=== PATIENT | female | born 1950 | race African-American/Black ===

== ENCOUNTER 2019-03-26 08:58 | Inpatient (IN) | payer MEDICARE, MEDICAID ==
--- NOTE | 2019-03-26 09:56 | ER Document Report ---
ED General - General Chief Complaint: Facial Swelling Stated Complaint: MOUTH SWELLING TRAVEL OUTSIDE OF THE [place] IN LAST 30 DAYS: No - HPI Notes: Patient is a 69-year-old female with a history of type 2 diabetes, hypertension, hypercholesterolemia who presents to the emergency department for direct admission for Jair's Angina per Dr. Franks. Patient states that she has been having a sore throat, swelling of the tongue, and pain underneath her tongue over the past week. She is urinating normally and having normal bowel movements. Denies drug allergies. No other concerns or complaints at this time. Patient has arrived with orders from her admitting provider. Denies any headache, fever, neck pain, URI, chest pain, palpitations, syncope, cough, shortness of breath, wheeze, dyspnea, abdominal pain, nausea/vomiting/diarrhea, urinary retention, dysuria, hematuria, or rash. - Related Data Allergies/Adverse Reactions: No Known Allergies Allergy (Unverified 02/23/15 10:40) Past Medical History - Social History Smoking Status: Never Smoker Family History: Reviewed & Not Pertinent - Past Medical History Cardiac Medical History: Reports: Hx Hypertension - METOPROLOL, LISINOPRIL, NORVASC Denies: Hx Coronary Artery Disease, Hx Heart Attack Pulmonary Medical History: Denies: Hx Asthma, Hx Bronchitis, Hx COPD, Hx Pneumonia Neurological Medical History: Denies: Hx Cerebrovascular Accident, Hx Seizures GI Medical History: Denies: Hx Hepatitis, Hx Hiatal Hernia, Hx Ulcer Musculoskeletal Medical History: Denies Hx Arthritis Infectious Medical History: Denies: Hx Hepatitis Past Surgical History: Denies: Hx Hysterectomy, Hx Mastectomy, Hx Open Heart Surgery, Hx Pacemaker - Immunizations Hx Diphtheria, Pertussis, Tetanus Vaccination: No Review of Systems - Review of Systems -: Yes All other systems reviewed and negative Physical Exam - Vital signs Vitals: Temp Pulse Resp BP Pulse Ox 98.8 F 102 H 18 183/83 H 95 03/26/19 09:14 03/26/19 09:14 03/26/19 09:14 03/26/19 09:14 03/26/19 09:14 - Notes Notes: PHYSICAL EXAMINATION: GENERAL: Well-appearing, well-nourished and in no acute distress. A&Ox4. Answers questions appropriately. Moves comfortably w/o notable distress HEAD: Atraumatic, normocephalic. EYES: Pupils equal round and reactive to light, extraocular movements intact, sclera anicteric, conjunctiva are normal. ENT: EAC clear b/l. TM's intact b/l without erythema, fluid, or perforation. Nares patent and with clear discharge. oropharynx mild erythema without exudates. 3+ tonsilar hypertrophy with erythema no exudate. No obvious palatine shift. Uvula midline. + tenderness to the subungual area. No drooling, hoarseness, or airway compromise. Moist mucous membranes. No sinus tenderness. NECK: Normal range of motion, supple without lymphadenopathy. No rigidity/meningismus. LUNGS: Breath sounds clear to auscultation bilaterally and equal. No wheezes rales or rhonchi. No retractions HEART: Regular rate and rhythm without murmurs, rubs, gallops. NEUROLOGICAL: Normal speech, normal gait. PSYCH: Normal mood, normal affect. SKIN: Warm, Dry, normal turgor, no rashes or lesions noted. Course - Re-evaluation Re-evalutation: 03/26/19 09:54 Pt is a direct admit per Dr. Franks. His admission orders are already placed. Vitals acceptable without significant tachycardia, tachypnea, or hypoxia. PE is otherwise unremarkable aside from what was noted. She is nontoxic-appearing. No further work-up warranted. Admission per Dr. Franks. - Vital Signs Vital signs: Temp Pulse Resp BP Pulse Ox 98.8 F 102 H 18 183/83 H 95 03/26/19 09:14 03/26/19 09:14 03/26/19 09:14 03/26/19 09:14 03/26/19 09:14 Discharge - Discharge Clinical Impression: Ludwigs angina Condition: Stable Disposition: ADMITTED INPATIENT Admitting Provider: [facility] Admitted: [facility]
[2019-03-26 10:15] LABS: ABSOLUTE EOSINOPHILS # (AUTO) 0.1 10^3/uL (0.0-0.6); ABSOLUTE LYMPHOCYTES (AUTO) 3.8 10^3/uL (0.5-4.7); ABSOLUTE NEUT (AUTO) 9.3 10^3/uL (1.7-8.2); BASOPHILS % (AUTO) 0.3 % (0-2); EOSINOPHILS % (AUTO) 0.8 % (0-6); HEMATOCRIT 38.1 % (36.0-47.0); HEMOGLOBIN 12.8 g/dL (12.0-15.5); LYMPHOCYTES % (AUTO) 26.7 % (13-45); MEAN CORPUSCULAR HGB CONC 33.7 g/dL (32.0-36.0); MEAN CORPUSCULAR VOLUME 95 fl (80-97); MONOCYTES % (AUTO) 7.1 % (3-13); PLATELET COUNT 307 10^3/uL (150-450); RED BLOOD COUNT 4.01 10^6/uL (3.72-5.28); RED CELL DISTRIBUTION WIDTH 14.1 % (11.5-14.0); SEGMENTED NEUTROPHILS % (AUTO) 65.1 % (42-78); TOTAL CELLS COUNTED % (AUTO) 100 %; WHITE BLOOD COUNT 14.3 10^3/uL (4.0-10.5)
[2019-03-26] MEDS ORDERED: DEXTROSE 50%-WATER SYRINGE 12.5 GM/25 ML DOSE IV PRN (10:30)
[2019-03-26] MEDS ORDERED: GLUCAGON,HUMAN RECOMB 1 MG INJ IM PRN (10:30)
[2019-03-26] MEDS ORDERED: DEXTROSE 50%-WATER SYRINGE 25 GM/50 ML DOSE IV PRN (10:30)
[2019-03-26] MEDS ORDERED: DEXTROSE 40% GEL 15 GM TUBE X 2 PO PRN (10:30)
[2019-03-26] MEDS ORDERED: DEXTROSE 40% GEL 15 GM TUBE PO PRN (10:30)
[2019-03-26 10:32] LABS: ALANINE AMINOTRANSFERASE 23 U/L (9-52); ALBUMIN 4.6 g/dL (3.5-5.0); ALKALINE PHOSPHATASE 104 U/L (38-126); ANION GAP 16 (5-19); ASPARTATE AMINO TRANSFERASE 28 U/L (14-36); BILIRUBIN,DIRECT 0.4 mg/dL (0.0-0.4); BILIRUBIN,TOTAL 0.7 mg/dL (0.2-1.3); BLOOD UREA NITROGEN 7 mg/dL (7-20); CALCIUM 10.3 mg/dL (8.4-10.2); CARBON DIOXIDE 18 mmol/L (22-30); CHLORIDE 110 mmol/L (98-107); GLUCOSE 143 mg/dL (75-110); POTASSIUM 3.9 mmol/L (3.6-5.0); SODIUM 144.2 mmol/L (137-145); TOTAL PROTEIN 8.6 g/dL (6.3-8.2)
[2019-03-26] MEDS ORDERED: LEVOFLOXACIN 500 MG/D5W RTU 500 MG/100 ML RTUPB IV SCH (11:00)
[2019-03-26] MEDS: LEVOFLOXACIN 500 MG/D5W RTU 500 MG/100 ML RTUPB IV SCH (11:36)
[2019-03-26] MEDS: PANTOPRAZOLE SODIUM 40 MG VIAL IV SCH ×2 (11:36→22:43)
[2019-03-26] MEDS: INSULIN LISPRO 100 UNIT/ML 3 ML VIAL SUBCUT SCH ×3 (12:03→22:43)
--- NOTE | 2019-03-26 12:38 | RADIOLOGY REPORT (SQ) ---
EXAM DESCRIPTION: CT SOFT TISSUE NECK WITH COMPLETED DATE/TIME: 03/26/2019 12:02 pm REASON FOR STUDY: er 2 neck pain/swelling COMPARISON: None. TECHNIQUE: Post IV contrasted scanning from skull base through lung apices with review of bone, soft tissue and lung windows. Reconstructed coronal and sagittal MPR images reviewed. All images stored on PACS. All CT scanners at this facility use dose modulation, iterative reconstruction, and/or weight based d osing when appropriate to reduce radiation dose to as low as reasonably achievable (ALARA). [facility]: Dose Right [facility]: CareDose [facility]: Dose Right [facility]: Teradose 4D [facility]: Shopsy CONTRAST TYPE AND DOSE: contrast/concentration: Isovue 350.00 mg/ml; Total Contrast Delivered: 75.0 ml; Total Saline Delivered: 55.0 ml RENAL FUNCTION: GFR > 60. RADIATION DOSE: CT Rad equipment meets quality standard of care and radiation dose reduction techniq ues were employed. CTDIvol: 17.7 mGy. DLP: 568 mGy-cm. . LIMITATIONS: None. FINDINGS: SKULL BASE: Intact. MAJOR SALIVARY GLANDS: No solid or cystic masses. No inflammatory changes. LYMPHADENOPATHY: Mildly enlarged lymph nodes symmetric both sides of the neck above the hyoid. No bu lky adenopathy. MUCOSAL MASSES OR ASYMMETRY: Right tonsillar pillar heterogeneous low-attenuation lesion measuring ab out 2.5 cm in maximum diameter craniocaudal. LARYNX/CORDS: No abnormal findings. VASCULAR STRUCTURES: The major vessels are patent. LUNG APICES: Clear. BONES: Intact. THYROID: Enlarged. Several subcentimeter nodules. PARANASAL SINUSES: Fluid left sphenoid sinus. OTHER: No other significant finding. IMPRESSION: Necrotic lesion right tonsillar pillar most likely abscess. ENT consultation is recomme nded. TECHNICAL DOCUMENTATION: JOB ID: [id number] Quality ID # [id number]: Final reports with documentation of one or more dose reduction techniques (e.g., Au tomated exposure control, adjustment of the mA and/or kV according to patient size, use of iterative reconstruction technique) 2010 [employer]- All Rights Reserved Reading location - IP/workstation name: [email or web address]
[2019-03-26] MEDS: NORMAL SALINE 1000 ML 1,000 ML IV PRN (13:55)
[2019-03-26] MEDS: CLINDAMYCIN 600 MG/D5W RTU 600 MG/50 ML RTUPB IV SCH ×2 (13:56→22:43)
[2019-03-26] MEDS ORDERED: CLINDAMYCIN 600 MG/D5W RTU 600 MG/50 ML RTUPB IV SCH (14:00)
[2019-03-26] MEDS: METFORMIN HCL 500 MG TABLET PO SCH (17:54)
--- NOTE | 2019-03-26 19:09 | PDOC H&P ---
History of Present Illness Admission Date/PCP: 03/26/19 09:34 RUPESH KOBE Patient complains of: Difficulty with swallowing History of Present Illness: CHARLOTTE SOMERS is a 69 year old female know to my practice who presented to the office earlier today due to difficulty with swallowing. she was seen in the office yesterday for possible tonsillitis with consideration of upper respiratory tract infection and started on oral Augmentin. She was able to procure and administer only one dose thereafter. Patient and daughter reported significant swelling in her throat and lower aspect of her jaw with associated difficulty with swallowing and inability to administer any of her medication, drink, or food. she denied overt fever but reported continue chills and breaking out in sweats. No nausea vomiting or abdominal pain. No chest pain or difficulty with breathing. Her morbidities include diabetes mellitus, hypertension, hyperlipidemia, GERD, and mixed anxiety with depression. She was admitted directly from the office but due to lack of bed availability at the time she was routed through the ED. Past Medical History Cardiac Medical History: Reports: Hyperlipidema, Hypertension - METOPROLOL, LISINOPRIL, NORVASC Denies: Coronary Artery Disease, Myocardial Infarction Pulmonary Medical History: Denies: Asthma, Bronchitis, Chronic Obstructive Pulmonary Disease (COPD), Pneumonia Neurological Medical History: Denies: Seizures Endocrine Medical History: Reports: Diabetes Mellitus Type 2 GI Medical History: Denies: Hepatitis, Hiatal Hernia Musculoskeltal Medical History: Denies: Arthritis Psychiatric Medical History: Reports: General Anxiety Disorder Hematology: Denies: Anemia, Sickle Cell Disease Past Surgical History Past Surgical History: Denies: Amputation, Hysterectomy, Mastectomy, Pacemaker Social History Smoking Status: Never Smoker Family History Family History: Reviewed & Not Pertinent Parental Family History Reviewed: Yes Children Family History Reviewed: Yes Sibling(s) Family History Reviewed.: Yes Medication/Allergy Home Medications: Amlodipine Besylate [Norvasc 10 mg Tablet] 10 mg PO DAILY 03/26/13 Aspirin [Ecotrin 81 mg EC Tablet] 81 mg PO DAILY 03/26/13 Glimepiride [Amaryl] 2 mg PO DAILY 03/26/13 Lisinopril 40 mg PO DAILY 03/26/13 Metformin HCl [Glucophage 500 Mg Tablet] 500 mg PO BID 03/26/13 Omeprazole 20 mg PO DAILY 03/26/13 Sertraline HCl [Zoloft] 100 mg PO DAILY 03/26/13 Ergocalciferol (Vitamin D2) [Drisdol 50,000 Unit (1.25MG) Capsule] 50,000 unit PO MO@1000 03/26/19 Metoprolol Tartrate [Lopressor 25 mg Tablet] 25 mg PO Q12 03/26/19 Rosuvastatin Calcium [Crestor 20 mg Tablet] 20 mg PO QHS 03/26/19 Allergies/Adverse Reactions: No Known Allergies Allergy (Unverified 02/23/15 10:40) Review of Systems Constitutional: PRESENT: chills Eyes: PRESENT: visual disturbances Ears: ABSENT: hearing changes Nose, Mouth, and Throat: PRESENT: sore throat. ABSENT: as per HPI, headache(s), mouth pain, vertigo, other Cardiovascular: ABSENT: chest pain, dyspnea on exertion, edema, orthropnea, palpitations Respiratory: ABSENT: cough, hemoptysis Gastrointestinal: PRESENT: dysphagia. ABSENT: as per HPI, abdominal pain, bloating, coffee ground emesis, constipation, diarrhea, heartburn, hematemesis, hematochezia, melena, nausea, vomiting, other Musculoskeletal: ABSENT: joint swelling Integumentary: ABSENT: rash, wounds Neurological: ABSENT: abnormal gait, abnormal speech, confusion, dizziness, focal weakness, syncope Psychiatric: PRESENT: anxiety Endocrine: ABSENT: cold intolerance, heat intolerance, polydipsia, polyuria Hematologic/Lymphatic: ABSENT: easy bleeding, easy bruising, lymphadenopathy Allergic/Immunologic: ABSENT: seasonal rhinorrhea Physical Exam Vital Signs: Temp Pulse Resp BP Pulse Ox 99.2 F 84 20 149/89 H 95 03/26/19 15:53 03/26/19 15:53 03/26/19 15:53 03/26/19 15:53 03/26/19 15:53 Intake & Output 03/25/19 03/26/19 03/27/19 06:59 06:59 06:59 Intake Total 150 Balance 150 Weight 114.3 kg General appearance: PRESENT: mild distress - due yo pain and difficulty with swallowing, morbidly obese Head exam: PRESENT: atraumatic, normocephalic Eye exam: PRESENT: conjunctival injection - left eye, conjunctiva pink, EOMI, PERRLA. ABSENT: scleral icterus Ear exam: PRESENT: normal external ear exam Mouth exam: PRESENT: moist Teeth exam: PRESENT: poor dentation Throat exam: PRESENT: tonsillar erythema, tonsillogmegaly Neck exam: PRESENT: full ROM. ABSENT: carotid bruit, JVD, lymphadenopathy, thyromegaly Respiratory exam: PRESENT: clear to auscultation nikolas Cardiovascular exam: PRESENT: RRR. ABSENT: diastolic murmur, rubs, systolic murmur Vascular exam: PRESENT: normal capillary refill. ABSENT: pallor GI/Abdominal exam: PRESENT: normal bowel sounds, soft. ABSENT: distended, guarding, mass, organolmegaly, rebound, tenderness Rectal exam: PRESENT: deferred Extremities exam: ABSENT: pedal edema Musculoskeletal exam: PRESENT: normal inspection Neurological exam: PRESENT: alert, awake, oriented to person, oriented to place, oriented to time, oriented to situation, CN II-XII grossly intact. ABSENT: motor sensory deficit Psychiatric exam: PRESENT: anxious. ABSENT: homicidal ideation, suicidal ideation Skin exam: PRESENT: dry, warm Results Laboratory Results: 03/26/19 10:00 03/26/19 10:00 03/26/19 03/26/19 10:00 10:00 WBC 14.3 H RBC 4.01 Hgb 12.8 Hct 38.1 MCV 95 MCH 32.0 MCHC 33.7 RDW 14.1 H Plt Count 307 Seg Neutrophils % 65.1 Lymphocytes % 26.7 Monocytes % 7.1 Eosinophils % 0.8 Basophils % 0.3 Absolute Neutrophils 9.3 H Absolute Lymphocytes 3.8 Absolute Monocytes 1.0 Absolute Eosinophils 0.1 Absolute Basophils 0.0 Sodium 144.2 Potassium 3.9 Chloride 110 H Carbon Dioxide 18 L Anion Gap 16 BUN 7 Creatinine 0.46 L Est GFR ( Amer) > 60 Est GFR (Non-Af Amer) > 60 Glucose 143 H Calcium 10.3 H Total Bilirubin 0.7 AST 28 ALT 23 Alkaline Phosphatase 104 Total Protein 8.6 H Albumin 4.6 Impressions: Soft Tissue Neck CT 03/26/19 00:00 IMPRESSION: Necrotic lesion right tonsillar pillar most likely abscess. ENT consultation is recommended. Assessment & Plan - Diagnosis (1) Ludwigs angina Is this a current diagnosis for this admission?: Yes Plan: See admitting attending physician orders for details of care plan. (2) Diabetes mellitus type 2 in obese Is this a current diagnosis for this admission?: Yes Plan: See admitting attending physician orders for details of care plan. (3) HTN (hypertension) Qualifiers: Hypertension type: essential hypertension Qualified Code(s): I10 - Essential (primary) hypertension Is this a current diagnosis for this admission?: Yes Plan: See admitting attending physician orders for details of care plan. (4) HLD (hyperlipidemia) Qualifiers: Hyperlipidemia type: unspecified Qualified Code(s): E78.5 - Hyperlipidemia, unspecified Is this a current diagnosis for this admission?: Yes Plan: See admitting attending physician orders for details of care plan. (5) Mixed anxiety and depressive disorder Is this a current diagnosis for this admission?: Yes Plan: See admitting attending physician orders for details of care plan. (6) Vitamin D deficiency Is this a current diagnosis for this admission?: Yes Plan: See admitting attending physician orders for details of care plan. - Time Time Spent: 50 to 70 Minutes Medications reviewed and adjusted accordingly: Yes Anticipated discharge: Home with Homehealth Within: Other - Inpatient Certification Based on my medical assessment, after consideration of the patient's comorbidities, presenting symptoms, or acuity I expect that the services needed warrant INPATIENT care.: Yes I certify that my determination is in accordance with my understanding of Medicare's requirements for reasonable and necessary INPATIENT services [42 CFR 412.3e].: Yes Medical Necessity: Significant Comorbidiites Make Outpatient Treatment Too Ri michelle, Need Close Monitoring Due to Risk of Patient Decompensation, Need For IV Fluids, Need For Continuous Telemetry Monitoring, Need for IV Antibiotics, Risk of Complication if Not Cared For in Hospital, Risk of Diagnosis Which Will Require Inpatient Eval/Care/Monitoring Post Hospital Care: D/C Personal Care Service Provider Documentation - Plan Summary Plan Summary: See admitting attending physician orders for details of care plan.
[2019-03-26] MEDS ORDERED: (PENDING PHARMACY ID) (Rosuvastatin Calcium [Crestor 20 Mg Tablet] 20 MG) PO SCH (22:00)
[2019-03-26] MEDS ORDERED: METOPROLOL TARTRATE 25 MG TABLET PO SCH (22:00)
[2019-03-26] MEDS ORDERED: ATORVASTATIN CALCIUM 40 MG TABLET PO SCH ×2 (22:00)
[2019-03-26] MEDS: METOPROLOL TARTRATE 25 MG TABLET PO SCH (22:43)
[2019-03-26] MEDS: ATORVASTATIN CALCIUM 40 MG TABLET PO SCH (22:43)
[2019-03-27] MEDS: NORMAL SALINE 1000 ML 1,000 ML IV PRN ×2 (02:39→21:23)
[2019-03-27] MEDS: CLINDAMYCIN 600 MG/D5W RTU 600 MG/50 ML RTUPB IV SCH ×3 (05:11→21:22)
[2019-03-27 05:32] LABS: ABSOLUTE EOSINOPHILS # (AUTO) 0.2 10^3/uL (0.0-0.6); ABSOLUTE LYMPHOCYTES (AUTO) 3.4 10^3/uL (0.5-4.7); ABSOLUTE MONOCYTES (AUTO) 1.2 10^3/uL (0.1-1.4); ABSOLUTE NEUT (AUTO) 7.8 10^3/uL (1.7-8.2); BASOPHILS % (AUTO) 0.2 % (0-2); EOSINOPHILS % (AUTO) 1.7 % (0-6); HEMATOCRIT 32.8 % (36.0-47.0); LYMPHOCYTES % (AUTO) 26.8 % (13-45); MEAN CORPUSCULAR HEMOGLOBIN 31.8 pg (27.0-33.4); MEAN CORPUSCULAR HGB CONC 33.6 g/dL (32.0-36.0); MEAN CORPUSCULAR VOLUME 95 fl (80-97); MONOCYTES % (AUTO) 9.4 % (3-13); PLATELET COUNT 259 10^3/uL (150-450); RED BLOOD COUNT 3.46 10^6/uL (3.72-5.28); RED CELL DISTRIBUTION WIDTH 13.8 % (11.5-14.0); SEGMENTED NEUTROPHILS % (AUTO) 61.9 % (42-78); TOTAL CELLS COUNTED % (AUTO) 100 %; WHITE BLOOD COUNT 12.7 10^3/uL (4.0-10.5)
[2019-03-27 05:49] LABS: ALANINE AMINOTRANSFERASE 19 U/L (9-52); ALBUMIN 3.8 g/dL (3.5-5.0); ALKALINE PHOSPHATASE 80 U/L (38-126); ANION GAP 13 (5-19); ASPARTATE AMINO TRANSFERASE 24 U/L (14-36); BILIRUBIN,DIRECT 0.3 mg/dL (0.0-0.4); BILIRUBIN,TOTAL 0.7 mg/dL (0.2-1.3); BLOOD UREA NITROGEN 4 mg/dL (7-20); CALCIUM 9.3 mg/dL (8.4-10.2); CARBON DIOXIDE 20 mmol/L (22-30); CHLORIDE 110 mmol/L (98-107); GLUCOSE 110 mg/dL (75-110); POTASSIUM 3.8 mmol/L (3.6-5.0); SODIUM 142.6 mmol/L (137-145); TOTAL PROTEIN 7.2 g/dL (6.3-8.2); TRIGLYCERIDES 176 mg/dL (<150)
[2019-03-27 06:00] LABS: DIRECT LDL 108 mg/dL (<100)
[2019-03-27] MEDS ORDERED: PANTOPRAZOLE SODIUM 20 MG TABLET.DR PO SCH (06:00)
[2019-03-27 06:04] LABS: VLDL CHOLESTEROL 35.2 mg/dL (10-31)
--- NOTE | 2019-03-27 07:44 | PDOC PROGRESS REPORT ---
Subjective Progress Note for:: 03/27/19 Subjective:: Patient reported some improvement in her swallowing tolerance with decrease pain. No fever or chills. No nausea, vomiting, increase salivation or abdominal pain. No chest pain or difficulty with breathing. Reason For Visit: DIABETES MELLITUS TYPE 2, HTN, HLD, GERD, ANXIETY Physical Exam Vital Signs: Temp Pulse Resp BP Pulse Ox 98 F 68 18 150/62 H 98 03/27/19 04:00 03/27/19 04:00 03/27/19 04:00 03/27/19 04:00 03/27/19 04:00 Intake & Output 03/26/19 03/27/19 03/28/19 06:59 06:59 06:59 Intake Total 1200 Balance 1200 Weight 115.5 kg General appearance: PRESENT: no acute distress, morbidly obese Head exam: PRESENT: atraumatic, normocephalic Eye exam: PRESENT: conjunctival injection - left eye, EOMI, PERRLA. ABSENT: scleral icterus Ear exam: PRESENT: normal external ear exam Mouth exam: PRESENT: moist Throat exam: PRESENT: post pharyngeal erythema - improving, tonsillar erythema - improving, tonsillogmegaly - improving Respiratory exam: PRESENT: clear to auscultation nikolas Cardiovascular exam: PRESENT: RRR. ABSENT: diastolic murmur, rubs, systolic murmur Vascular exam: ABSENT: pallor GI/Abdominal exam: PRESENT: normal bowel sounds, soft. ABSENT: distended, guarding, mass, organolmegaly, rebound, tenderness Extremities exam: ABSENT: pedal edema Neurological exam: PRESENT: alert, awake, oriented to person, oriented to place, oriented to time, oriented to situation, CN II-XII grossly intact. ABSENT: motor sensory deficit Psychiatric exam: PRESENT: appropriate affect, normal mood. ABSENT: homicidal ideation, suicidal ideation Skin exam: PRESENT: dry, warm Results Laboratory Results: 03/27/19 04:53 03/27/19 04:53 03/26/19 03/26/19 03/27/19 10:00 10:00 04:53 WBC 14.3 H 12.7 H RBC 4.01 3.46 L Hgb 12.8 11.0 L Hct 38.1 32.8 L MCV 95 95 MCH 32.0 31.8 MCHC 33.7 33.6 RDW 14.1 H 13.8 Plt Count 307 259 Seg Neutrophils % 65.1 61.9 Lymphocytes % 26.7 26.8 Monocytes % 7.1 9.4 Eosinophils % 0.8 1.7 Basophils % 0.3 0.2 Absolute Neutrophils 9.3 H 7.8 Absolute Lymphocytes 3.8 3.4 Absolute Monocytes 1.0 1.2 Absolute Eosinophils 0.1 0.2 Absolute Basophils 0.0 0.0 Sodium 144.2 Potassium 3.9 Chloride 110 H Carbon Dioxide 18 L Anion Gap 16 BUN 7 Creatinine 0.46 L Est GFR ( Amer) > 60 Est GFR (Non-Af Amer) > 60 Glucose 143 H Calcium 10.3 H Total Bilirubin 0.7 AST 28 ALT 23 Alkaline Phosphatase 104 Total Protein 8.6 H Albumin 4.6 Triglycerides Cholesterol LDL Cholesterol Direct VLDL Cholesterol HDL Cholesterol 03/27/19 04:53 WBC RBC Hgb Hct MCV MCH MCHC RDW Plt Count Seg Neutrophils % Lymphocytes % Monocytes % Eosinophils % Basophils % Absolute Neutrophils Absolute Lymphocytes Absolute Monocytes Absolute Eosinophils Absolute Basophils Sodium 142.6 Potassium 3.8 Chloride 110 H Carbon Dioxide 20 L Anion Gap 13 BUN 4 L Creatinine 0.42 L Est GFR ( Amer) > 60 Est GFR (Non-Af Amer) > 60 Glucose 110 Calcium 9.3 Total Bilirubin 0.7 AST 24 ALT 19 Alkaline Phosphatase 80 Total Protein 7.2 Albumin 3.8 Triglycerides 176 H Cholesterol 170.40 LDL Cholesterol Direct 108 H VLDL Cholesterol 35.2 H HDL Cholesterol 33 L Impressions: Soft Tissue Neck CT 03/26/19 00:00 IMPRESSION: Necrotic lesion right tonsillar pillar most likely abscess. ENT consultation is recommended. Assessment & Plan - Diagnosis (1) Ludwigs angina Is this a current diagnosis for this admission?: Yes (2) Diabetes mellitus type 2 in obese Is this a current diagnosis for this admission?: Yes (3) HTN (hypertension) Qualifiers: Hypertension type: essential hypertension Qualified Code(s): I10 - Essential (primary) hypertension Is this a current diagnosis for this admission?: Yes (4) HLD (hyperlipidemia) Qualifiers: Hyperlipidemia type: unspecified Qualified Code(s): E78.5 - Hyperlipidemia, unspecified Is this a current diagnosis for this admission?: Yes (5) Mixed anxiety and depressive disorder Is this a current diagnosis for this admission?: Yes (6) Vitamin D deficiency Is this a current diagnosis for this admission?: Yes - Time Time Spent with patient: 25-34 minutes Medications reviewed and adjusted accordingly: Yes Anticipated discharge: Home Within: Other - Inpatient Certification Based on my medical assessment, after consideration of the patient's comorbidities, presenting symptoms, or acuity I expect that the services needed warrant INPATIENT care.: Yes I certify that my determination is in accordance with my understanding of Medicare's requirements for reasonable and necessary INPATIENT services [42 CFR 412.3e].: Yes Medical Necessity: Significant Comorbidiites Make Outpatient Treatment Too Risky, Need Close Monitoring Due to Risk of Patient Decompensation, Need For IV Fluids, Need For Continuous Telemetry Monitoring, Need for IV Antibiotics, Risk of Complication if Not Cared For in Hospital, Risk of Diagnosis Which Will Require Inpatient Eval/Care/Monitoring Post Hospital Care: D/C [employer] Documentation - Plan Summary Plan Summary: Continue IV antibiotic therapy. Follow up on ENT consultation and blood culture findings. Maintain on all other current medication management.
[2019-03-27] MEDS ORDERED: AMLODIPINE BESYLATE 10 MG TABLET PO SCH (10:00)
[2019-03-27] MEDS ORDERED: (PENDING PHARMACY ID) (Lisinopril [Lisinopril] 40 MG) PO SCH (10:00)
[2019-03-27] MEDS ORDERED: LISINOPRIL 10 MG TABLET PO SCH (10:00)
[2019-03-27] MEDS: INSULIN LISPRO 100 UNIT/ML 3 ML VIAL SUBCUT SCH ×4 (10:22→21:10)
[2019-03-27] MEDS: PANTOPRAZOLE SODIUM 40 MG VIAL IV SCH ×2 (10:32→21:23)
[2019-03-27] MEDS: LISINOPRIL 10 MG TABLET PO SCH (10:33)
[2019-03-27] MEDS: SERTRALINE HCL 50 MG TABLET PO SCH (10:33)
[2019-03-27] MEDS: METFORMIN HCL 500 MG TABLET PO SCH ×2 (10:33→17:00)
[2019-03-27] MEDS: ASPIRIN 81 MG TABLET, ENT COATED PO SCH (10:33)
[2019-03-27] MEDS: ENOXAPARIN SODIUM INJ 40 MG/0.4 ML DISP.SYRIN SUBCUT SCH (10:34)
[2019-03-27] MEDS: LEVOFLOXACIN 500 MG/D5W RTU 500 MG/100 ML RTUPB IV SCH (10:34)
[2019-03-27] MEDS: AMLODIPINE BESYLATE 10 MG TABLET PO SCH (10:34)
[2019-03-27] MEDS: METOPROLOL TARTRATE 25 MG TABLET PO SCH ×2 (10:34→21:24)
[2019-03-27] MEDS: GLIMEPIRIDE 1 MG TABLET PO SCH (10:38)
--- NOTE | 2019-03-27 10:39 | CONSULTATION REPORT E ---
Consultation Report NAME: CHARLOTTE SOMERS : 1950 AGE: 69Y DATE: 03/27/2019 314 A TO: LINDA HALL MD FROM: RUPESH BULLOCK M.D. Requesting Physician HISTORY: The otolaryngology service was asked to evaluate this 69-year-old female who was admitted to the hospital on 03/26/2019. The patient was admitted to the hospital because of facial swelling, tongue swelling, and dysphagia. The patient states that at the time of admission her tongue was swollen. She was not tolerating p.o. and she had difficulty opening up her mouth. The patient was admitted and started on IV antibiotics, which were Cleocin and Levaquin. Today the patient states that she is doing much better. She states that the neck and tongue swelling has decreased in size. She states she is tolerating p.o. without difficulty and she is able to open up her mouth without any pain or difficulty. A CT scan of the neck was obtained and it revealed a phlegmon/questionable abscess in the right peritonsillar area. PHYSICAL EXAMINATION: ORAL CAVITY/OROPHARYNX: There is some fullness, erythema in the right peritonsillar area. The uvula is midline. No trismus. Tongue is normal in size. Full range of motion of the tongue. The floor of mouth is normal. NECK: There is tender adenopathy level 2 on the right side. ASSESSMENT: Right peritonsillar cellulitis, possible abscess. PLAN: 1. The diagnosis and treatment plan were discussed with the patient and the nursing staff that was in the room. 2. Since the patient is doing much better, she states the trismus has resolved, she is tolerating p.o. and overall feels much better than yesterday recommend continued IV antibiotics. Would add IV steroids in the form of Decadron 10 mg as loading dose and then 8 mg IV piggyback for 3 doses. 3. Will reevaluate tomorrow to determine need for a needle aspiration of the right peritonsillar area. DICTATING PHYSICIAN: LINDA HALL M.D. [id number] PHY#: [id number] ID: [id number] JOB#: [id number] ACCT: [id number] cc:LINDA HALL MD >
[2019-03-27] MEDS: ATORVASTATIN CALCIUM 40 MG TABLET PO SCH (21:24)
[2019-03-28] MEDS: CLINDAMYCIN 600 MG/D5W RTU 600 MG/50 ML RTUPB IV SCH ×2 (06:17→14:30)
[2019-03-28] MEDS: INSULIN LISPRO 100 UNIT/ML 3 ML VIAL SUBCUT SCH ×2 (09:26→14:22)
[2019-03-28] MEDS: LISINOPRIL 10 MG TABLET PO SCH (10:26)
[2019-03-28] MEDS: ASPIRIN 81 MG TABLET, ENT COATED PO SCH (10:26)
[2019-03-28] MEDS: METOPROLOL TARTRATE 25 MG TABLET PO SCH (10:26)
[2019-03-28] MEDS: SERTRALINE HCL 50 MG TABLET PO SCH (10:26)
[2019-03-28] MEDS: AMLODIPINE BESYLATE 10 MG TABLET PO SCH (10:27)
[2019-03-28] MEDS: ENOXAPARIN SODIUM INJ 40 MG/0.4 ML DISP.SYRIN SUBCUT SCH (10:27)
[2019-03-28] MEDS: METFORMIN HCL 500 MG TABLET PO SCH (10:27)
[2019-03-28] MEDS: PANTOPRAZOLE SODIUM 40 MG VIAL IV SCH (10:27)
[2019-03-28] MEDS: LEVOFLOXACIN 500 MG/D5W RTU 500 MG/100 ML RTUPB IV SCH (10:35)
[2019-03-28] MEDS: GLIMEPIRIDE 1 MG TABLET PO SCH (10:37)
--- NOTE | 2019-03-28 13:33 | PROGRESS NOTE E ---
Progress Note NAME: CHARLOTTE SOMERS : 1950 AGE: 69Y DATE: 03/28/2019 ROOM: 314 SUBJECTIVE: The patient is doing much better today. She is tolerating p.o. without any complaints. She is drinking and eating without any problems. She states she can open up her mouth fully. Overall, she states she is doing much better. OBJECTIVE: ORAL CAVITY/OROPHARYNGEAL EXAM: The fullness in the right peritonsillar area has resolved. No evidence of erythema or edema. The tonsils are without erythema or edema. Overall, much, much improved. ASSESSMENT: RIGHT PERITONSILLAR CELLULITIS, RESOLVED. PLAN: 1. Surgical intervention is not indicated at this time. 2. Recommend discharging the patient on p.o. antibiotics. 3. Follow up with ENT as needed. DICTATING PHYSICIAN: LINDA HALL M.D. [id number] PHY#: [id number] ID: [id number] JOB#: [id number] ACCT: [id number] cc: > MTDD
--- NOTE | 2019-03-28 15:36 | PDOC DISCHARGE SUMMARY ---
General - Admit/Disc Date/PCP Admission Date/Primary Care Provider: 03/26/19 09:34 RUPESH KOBE Discharge Date: 03/28/19 - Discharge Diagnosis (1) Peritonsillar abscess Is this a current diagnosis for this admission?: Yes Summary: Augmentin 875/125 mg p.o x 10days. follow up in the office as instructed upon discharge. (2) Diabetes mellitus type 2 in obese Is this a current diagnosis for this admission?: Yes (3) HTN (hypertension) Is this a current diagnosis for this admission?: Yes (4) HLD (hyperlipidemia) Is this a current diagnosis for this admission?: Yes (5) Mixed anxiety and depressive disorder Is this a current diagnosis for this admission?: Yes (6) Vitamin D deficiency Is this a current diagnosis for this admission?: Yes - Additional Information Prescriptions: Amox Tr/Potassium Clavulanate [Augmentin 875-125 mg Tablet] 1 tab PO BID #20 tablet Home Medications: Amlodipine Besylate [Norvasc 10 mg Tablet] 10 mg PO DAILY 03/26/13 Aspirin [Ecotrin 81 mg EC Tablet] 81 mg PO DAILY 03/26/13 Glimepiride [Amaryl] 2 mg PO DAILY 03/26/13 Lisinopril 40 mg PO DAILY 03/26/13 Metformin HCl [Glucophage 500 mg Tablet] 500 mg PO BID 03/26/13 Omeprazole 20 mg PO DAILY 03/26/13 Sertraline HCl [Zoloft] 100 mg PO DAILY 03/26/13 Ergocalciferol (Vitamin D2) [Drisdol 50,000 unit (1.25MG) Capsule] 50,000 unit PO MO@1000 03/26/19 Metoprolol Tartrate [Lopressor 25 mg Tablet] 25 mg PO Q12 03/26/19 Rosuvastatin Calcium [Crestor 20 mg Tablet] 20 mg PO QHS 03/26/19 Amox Tr/Potassium Clavulanate [Augmentin 875-125 mg Tablet] 1 tab PO BID #20 tablet 03/28/19 History of Present Illness Patient complains of: Facial and throat swelling, difficulty with swallowing History of Present Illness: CHARLOTTE SOMERS is a 69 year old female know to my practice who presented to the office earlier today due to difficulty with swallowing. she was seen in the office yesterday for possible tonsillitis with consideration of upper respiratory tract infection and started on oral Augmentin. She was able to procure and administer only one dose thereafter. Patient and daughter reported significant swelling in her throat and lower aspect of her jaw with associated difficulty with swallowing and inability to administer any of her medication, drink, or food. she denied overt fever but reported continue chills and breaking out in sweats. No nausea vomiting or abdominal pain. No chest pain or difficulty with breathing. Her morbidities include diabetes mellitus, hypertension, hyperlipidemia, gastroesophageal reflux disease, and mixed anxiety with depression. She was admitted directly from the office but due to lack of bed henny ilability at the time she was routed through the ED. Hospital Course Hospital Course: Patient was managed with IV Clindamycin and Levofloxacin. she was seen in consultation by ENT team with recommendation for conservative medical management for peritonsillar abscess. She has been able to tolerate oral feeding and mediation. She remain afebrile with resolution of her submandibular tenderness, sore throat and facial swelling. She will be discharge home today and follow up in the office as instructed upon discharge. I will recommend follow up with ENT team for post acute clearance to her baseline status. Physical Exam Vital Signs: Temp Pulse Resp BP Pulse Ox 98.1 F 56 L 15 128/52 H 100 03/28/19 11:29 03/28/19 11:29 03/28/19 11:29 03/28/19 11:29 03/28/19 11:29 Intake & Output 03/27/19 03/28/19 03/29/19 06:59 06:59 06:59 Intake Total 1200 1617 50 Output Total 1 Balance 1200 1616 50 Weight 115.5 kg 115.9 kg Physical Exam: General appearance: PRESENT: no acute distress, morbidly obese Head exam: PRESENT: atraumatic, normocephalic Eye exam: PRESENT: conjunctival injection - left eye, EOMI, PERRLA. ABSENT: scleral icterus Ear exam: PRESENT: normal external ear exam Mouth exam: PRESENT: moist Throat exam: PRESENT: post pharyngeal erythema - improving, tonsillar erythema - improving, tonsillomegaly - improving Respiratory exam: PRESENT: clear to auscultation nikolas Cardiovascular exam: PRESENT: RRR. ABSENT: diastolic murmur, rubs, systolic murmur Vascular exam: ABSENT: pallor GI/Abdominal exam: PRESENT: normal bowel sounds, soft. ABSENT: distended, guarding, mass, organomegaly, rebound, tenderness Extremities exam: ABSENT: pedal edema Neurological exam: PRESENT: alert, awake, oriented to person, oriented to place, oriented to time, oriented to situation, CN II-XII grossly intact. ABSENT: motor sensory deficit Psychiatric exam: PRESENT: appropriate affect, normal mood. ABSENT: homicidal ideation, suicidal ideation Skin exam: PRESENT: dry, warm Results Laboratory Results: 03/27/19 04:53 03/27/19 04:53 Impressions: Soft Tissue Neck CT 03/26/19 00:00 IMPRESSION: Necrotic lesion right tonsillar pillar most likely abscess. ENT consultation is recommended. Qualifiers - * PATIENT BEING DISCHARGED WITH ANY OF THE FOLLOWING DIAGNOSIS: No Acute Heart Failure Is this a Heart Failure Patient?: No Plan Discharge Plan: D/C home today. Follow up in the office with ENT, Dr. José Miguel Cuevas, and myself as instructed upon discharge.
[2019-03-28 16:05] VITALS: BP 183/83
[2019-03-31] MEDS ORDERED: ERGOCALCIFEROL (VITAMIN D2) 50000 UNIT (1.25 MG) CAPSULE PO SCH (10:00)
== END 2019-03-28 16:35 | disposition home or self-care (01) | DRG 153 ==
LOC: ER 08:58 → EH 09:34 → 3W 12:35
PROVIDERS: ADMIT Internal Medicine Geriatric Medicine; ATTEND Internal Medicine Geriatric Medicine
DX: J36 Peritonsillar abscess (principal); K21.9 Gastro-esophageal reflux disease without esophagitis; E11.8 Type 2 diabetes mellitus with unspecified complications; E55.9 Vitamin D deficiency, unspecified; E78.5 Hyperlipidemia, unspecified; I10 Essential (primary) hypertension; F41.9 Anxiety disorder, unspecified; Z79.84 Long term (current) use of oral hypoglycemic drugs; Z79.82 Long term (current) use of aspirin; Z79.899 Other long term (current) drug therapy
CPT/HCPCS: 36415; 70491; 80053; 80061; 82962; 83036; 85025; 87040; 99285; J1650; J1956; J7030; S0164

== ENCOUNTER → 2019-05-07 | Outpatient (CLI) | payer MEDICARE, MEDICAID ==
[2019-05-07 18:09] LABS: ALANINE AMINOTRANSFERASE 37 U/L (9-52); ALBUMIN 4.6 g/dL (3.5-5.0); ALKALINE PHOSPHATASE 75 U/L (38-126); ANION GAP 12 (5-19); ASPARTATE AMINO TRANSFERASE 35 U/L (14-36); BILIRUBIN,DIRECT 0.2 mg/dL (0.0-0.4); BILIRUBIN,TOTAL 0.4 mg/dL (0.2-1.3); BLOOD UREA NITROGEN 9 mg/dL (7-20); CALCIUM 9.6 mg/dL (8.4-10.2); CARBON DIOXIDE 20 mmol/L (22-30); CHLORIDE 111 mmol/L (98-107); GLUCOSE 92 mg/dL (75-110); POTASSIUM 4.1 mmol/L (3.6-5.0); TOTAL PROTEIN 7.9 g/dL (6.3-8.2)
== END ==
LOC: OD 17:14
PROVIDERS: ATTEND Internal Medicine Geriatric Medicine
DX: I10 Essential (primary) hypertension (principal)
CPT/HCPCS: 36415; 80053

== ENCOUNTER 2019-07-17 09:32 | Observation (INO) | payer MEDICARE, MEDICAID ==
[2019-07-17 12:08] LABS: ABSOLUTE BASOPHILS # (AUTO) 0.1 10^3/uL (0.0-0.2); ABSOLUTE EOSINOPHILS # (AUTO) 0.1 10^3/uL (0.0-0.6); ABSOLUTE LYMPHOCYTES (AUTO) 3.8 10^3/uL (0.5-4.7); ABSOLUTE MONOCYTES (AUTO) 0.9 10^3/uL (0.1-1.4); ABSOLUTE NEUT (AUTO) 6.6 10^3/uL (1.7-8.2); BASOPHILS % (AUTO) 0.5 % (0-2); EOSINOPHILS % (AUTO) 1.3 % (0-6); HEMATOCRIT 42.7 % (36.0-47.0); HEMOGLOBIN 14.4 g/dL (12.0-15.5); LYMPHOCYTES % (AUTO) 33.3 % (13-45); MEAN CORPUSCULAR HGB CONC 33.8 g/dL (32.0-36.0); MEAN CORPUSCULAR VOLUME 95 fl (80-97); MONOCYTES % (AUTO) 7.8 % (3-13); PLATELET COUNT 308 10^3/uL (150-450); RED BLOOD COUNT 4.51 10^6/uL (3.72-5.28); RED CELL DISTRIBUTION WIDTH 13.5 % (11.5-14.0); SEGMENTED NEUTROPHILS % (AUTO) 57.1 % (42-78); TOTAL CELLS COUNTED % (AUTO) 100 %; WHITE BLOOD COUNT 11.5 10^3/uL (4.0-10.5)
[2019-07-17] MEDS ORDERED: ATROPINE SULFATE 1% OPH SOLN 5 ML BOTTLE OD ONE (12:13)
[2019-07-17] MEDS ORDERED: METHYLPREDNISOLONE INJ 1000 MG VIAL IV ONE (12:14)
[2019-07-17] MEDS ORDERED: PREDNISOLONE ACETATE 1% OPH SUSP 5 ML OD ONE (12:14)
[2019-07-17 12:28] LABS: APPEARANCE,URINE CLOUDY; BILIRUBIN,URINE NEGATIVE (NEGATIVE); GLUCOSE, URINE NEGATIVE (NEGATIVE); KETONES,URINE TRACE mg/dL (NEGATIVE); LEUKOCYTE ESTERASE,URINE NEGATIVE (NEGATIVE); NITRITE,URINE NEGATIVE (NEGATIVE); PROTEIN,URINE 100 mg/dL (NEGATIVE); UROBILINOGEN,URINE NEGATIVE mg/dL (<2.0)
[2019-07-17 12:30] LABS: ALBUMIN 4.7 g/dL (3.5-5.0); ALKALINE PHOSPHATASE 79 U/L (38-126); ANION GAP 13 (5-19); ASPARTATE AMINO TRANSFERASE 46 U/L (14-36); BILIRUBIN,DIRECT 0.2 mg/dL (0.0-0.4); BILIRUBIN,TOTAL 0.6 mg/dL (0.2-1.3); BLOOD UREA NITROGEN 10 mg/dL (7-20); CALCIUM 10.2 mg/dL (8.4-10.2); CARBON DIOXIDE 23 mmol/L (22-30); CHLORIDE 106 mmol/L (98-107); GLUCOSE 90 mg/dL (75-110); POTASSIUM 4.3 mmol/L (3.6-5.0); TOTAL PROTEIN 8.3 g/dL (6.3-8.2)
[2019-07-17 12:38] LABS: ADD MANUAL MICROSCOPIC YES; COLOR,URINE YELLOW
[2019-07-17 12:39] LABS: BACTERIA,URINE TRACE /HPF; HYALINE CASTS, URINE TOO NUMEROUS TO CNT /LPF; RBC,URINE NONE SEEN /HPF
--- NOTE | 2019-07-17 13:23 | ER Document Report ---
ED Eye Complaint - General Chief Complaint: Eye Problem Stated Complaint: RIGHT EYE PAIN, REDNESS,IRRITATION Time Seen by Provider: 07/17/19 11:31 Primary Care Provider: JOSE RODRIGUEZ MD [Primary Care Provider] - Follow up as needed Notes: Patient is a 69-year-old female history of diabetes, hypertension, hyper lipidemia, blindness in the left eye presents to the emergency department for right eye pain and redness for the last 2 weeks. Patient was seen at Dr. Ruby Billings at [facility] in [place] this morning. She was diagnosed with right ocular pain, right hypopyon, unspecified chorioretinal inflammation bilaterally, other disorders of vitreous body. He has since paperwork with the patient stating he would like her to get 1 g of IV Solu- Medrol daily as well as prednisone ophthalmic every hour in the right eye and atropine ophthalmic q. a day in the right eye. His suggestion is that the patient is admitted to the hospital as she is a diabetic giving her high doses of steroids she will need close monitoring of her blood sugars. Patient denies any other complaints to include chest pain, shortness of breath, nausea, vomiting, headache. TRAVEL OUTSIDE OF THE [place] IN LAST 30 DAYS: No - Related Data Allergies/Adverse Reactions: No Known Allergies Allergy (Verified 07/17/19 09:34) Past Medical History - General Information source: Patient - Social History Smoking Status: Current Some Day Smoker Chew tobacco use (# tins/day): No Frequency of alcohol use: Occasional Drug Abuse: None Family History: Reviewed & Not Pertinent Patient has suicidal ideation: No Patient has homicidal ideation: No - Past Medical History Cardiac Medical History: Reports: Hx Hypercholesterolemia, Hx Hypertension - METOPROLOL, LISINOPRIL, NORVASC Denies: Hx Coronary Artery Disease, Hx Heart Attack Pulmonary Medical History: Denies: Hx Asthma, Hx Bronchitis, Hx COPD, Hx Pneumonia Neurological Medical History: Denies: Hx Cerebrovascular Accident, Hx Seizures Endocrine Medical History: Reports: Hx Diabetes Mellitus Type 2 Renal/ Medical History: Denies: Hx Peritoneal Dialysis GI Medical History: Denies: Hx Hepatitis, Hx Hiatal Hernia, Hx Ulcer Musculoskeletal Medical History: Denies Hx Arthritis Infectious Medical History: Denies: Hx Hepatitis Past Surgical History: Denies: Hx Hysterectomy, Hx Mastectomy, Hx Open Heart Surgery, Hx Pacemaker - Immunizations Hx Diphtheria, Pertussis, Tetanus Vaccination: No Review of Systems - Review of Systems Constitutional: denies: Fever EENT: See HPI Cardiovascular: No symptoms reported Respiratory: No symptoms reported Gastrointestinal: No symptoms reported Genitourinary: No symptoms reported Female Genitourinary: No symptoms reported Musculoskeletal: No symptoms reported Skin: No symptoms reported Hematologic/Lymphatic: No symptoms reported Neurological/Psychological: No symptoms reported Physical Exam - Vital signs Vitals: Temp Pulse Resp BP Pulse Ox 97.6 F 64 20 138/74 H 96 07/17/19 09:37 07/17/19 09:37 07/17/19 09:37 07/17/19 09:37 07/17/19 09:37 - Notes Notes: GENERAL: Alert, interacts well. No acute distress. HEAD: Normocephalic, atraumatic. EYES: Extraocular movements intact. Conjunctival injection and tearing noted bilaterally. Photophobia noted bilaterally. No upper or lower eyelid swelling or erythema. ENT: Oral mucosa moist, tongue midline. NECK: Full range of motion. Supple. Trachea midline. LUNGS: Clear to auscultation bilaterally, no wheezes, rales, or rhonchi. No respiratory distress. HEART: Regular rate and rhythm. No murmur ABDOMEN: Soft, non-tender. Non-distended. Bowel sounds present in all 4 quadrants. EXTREMITIES: Moves all 4 extremities spontaneously. No edema, normal radial and dorsalis pedis pulses bilaterally. No cyanosis. BACK: no cervical, thoracic, lumbar midline tenderness. No saddle anesthesia, normal distal neurovascular exam. NEUROLOGICAL: Alert and oriented x3. Normal speech. PSYCH: Normal affect, normal mood. SKIN: Warm, dry, normal turgor. No rashes or lesions noted. - HEENT Visual acuity- Right eye: 20/100 Visual acuity- Left eye: Blind Visual acuity- Both eyes: 20/100 Corrective lenses worn: No Course - Re-evaluation Re-evalutation: 07/17/19 13:22 I have discussed this case with Dr. Billings. He is confirming patient should receive 1 g of IV Solu-Medrol as well as ophthalmic prednisone and ophthalmic atropine. He is also voiced his recommendation the patient be admitted to the hospital. States he attempted to get the patient admitted to [facility] as she would be followed by retinal specialist but the patient refused. As I met with patient at bedside she is refusing any sort of transfer if needed. Discussed this case with patient's primary care provider Dr. Frakns, will admit the patient to telemetry. - Vital Signs Vital signs: Temp Pulse Resp BP Pulse Ox 97.6 F 64 20 138/74 H 96 07/17/19 09:37 07/17/19 09:37 07/17/19 09:37 07/17/19 09:37 07/17/19 09:37 - Laboratory Result Diagrams: 07/17/19 11:53 07/17/19 11:53 Laboratory results interpreted by me: 07/17/19 07/17/19 07/17/19 11:53 11:53 11:53 WBC 11.5 H AST 46 H Total Protein 8.3 H Urine Protein 100 H Urine Ketones TRACE H Discharge - Discharge Clinical Impression: Hypopyon of right eye Posterior uveitis Qualifiers: Laterality: right Qualified Code(s): H30.91 - Unspecified chorioretinal inflammation, right eye Condition: Stable Disposition: ADMITTED INPATIENT Admitting Provider: [facility] Admitted: Telemetry Referrals: JOSE RODRIGUEZ MD [Primary Care Provider] - Follow up as needed
[2019-07-17] MEDS ORDERED: DEXTROSE 40% GEL 15 GM TUBE PO PRN ×2 (18:18)
[2019-07-17] MEDS ORDERED: DEXTROSE 50%-WATER 25 GM/50 ML DISP.SYRIN IV PRN ×2 (18:18)
[2019-07-17] MEDS ORDERED: GLUCAGON,HUMAN RECOMB 1 MG INJ IM PRN (18:18)
[2019-07-17] MEDS ORDERED: LISINOPRIL 10 MG TABLET PO ONE (18:20)
[2019-07-17] MEDS ORDERED: LORAZEPAM INJ 2 MG/1 ML VIAL IV ONE (18:22)
[2019-07-17] MEDS ORDERED: NORMAL SALINE 1000 ML 1,000 ML IV PRN (18:22)
[2019-07-17] MEDS: INSULIN LISPRO 100 UNIT/ML 3 ML VIAL SUBCUT SCH ×2 (21:44→21:46)
[2019-07-17] MEDS: ATORVASTATIN CALCIUM 40 MG TABLET PO SCH (21:45)
[2019-07-17] MEDS: ENOXAPARIN SODIUM INJ 40 MG/0.4 ML DISP.SYRIN SUBCUT SCH (21:45)
[2019-07-17] MEDS: METOPROLOL TARTRATE 25 MG TABLET PO SCH (21:45)
--- NOTE | 2019-07-17 21:57 | PDOC H&P ---
History of Present Illness Admission Date/PCP: 07/17/19 13:58 JOSE RODRIGUEZ MD Patient complains of: Right eye pain History of Present Illness: CHARLOTTE SOMERS is a 69 year old female known to my practice who presented to Dr Billings, retinal specialist, due to pain and redness in her right eye for several weeks. Patient admitted to noncompliance with usage of prescribed ophthalmic solution. She reported worsening of her symptoms after discontinuation of the ophthalmic solution. Due to worsening of her diagnosed chorioretinal inflammation. It was recommended that she be treated with high dose IV Solu Medrol and advised hospitalization due to her morbidities including diabetes mellitus. She reported significant pain in her right eye and difficulty with keeping the eyes open due to associated pain and watery discharge. She denied any fever or chills. No headache, dizziness, nausea, or vomiting. 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 Past Medical History Cardiac Medical History: Reports: Hyperlipidema, Hypertension - METOPROLOL, LISINOPRIL, NORVASC Denies: Coronary Artery Disease, Myocardial Infarction Pulmonary Medical History: Denies: Asthma, Bronchitis, Chronic Obstructive Pulmonary Disease (COPD), Pneumonia Neurological Medical History: Denies: Seizures Endocrine Medical History: Reports: Diabetes Mellitus Type 2 GI Medical History: Denies: Hepatitis, Hiatal Hernia Musculoskeltal Medical History: Denies: Arthritis Hematology: Denies: Anemia, Sickle Cell Disease Past Surgical History Past Surgical History: Denies: Amputation, Hysterectomy, Mastectomy, Pacemaker Social History Smoking Status: Current Some Day Smoker Family History Family History: Reviewed & Not Pertinent Parental Family History Reviewed: Yes Children Family History Reviewed: Yes Sibling(s) Family History Reviewed.: Yes Medication/Allergy Home Medications: Amlodipine Besylate [Norvasc 10 mg Tablet] 10 mg PO DAILY 07/17/19 Aspirin [Adult Low Dose Aspirin EC] 81 mg PO DAILY 07/17/19 Ergocalciferol (Vitamin D2) [Drisdol] 50,000 unit PO .ONCE WEEKLY @1000 07/17/19 Glimepiride [Amaryl] 2 mg PO DAILY 07/17/19 Lisinopril [Prinivil 40 mg Tablet] 40 mg PO DAILY 07/17/19 Metformin HCl 500 mg PO BID 07/17/19 Metoprolol Tartrate [Lopressor 25 mg Tablet] 25 mg PO Q12 07/17/19 Omeprazole 20 mg PO DAILY 07/17/19 Rosuvastatin Calcium [Crestor 20 mg Tablet] 20 mg PO QHS 07/17/19 Sertraline HCl [Zoloft] 100 mg PO DAILY 07/17/19 Allergies/Adverse Reactions: No Known Allergies Allergy (Verified 07/17/19 09:34) Review of Systems Constitutional: ABSENT: chills, fever(s), headache(s), weight gain, weight loss Eyes: PRESENT: visual disturbances - with right eye pain, irritation, and redness Ears: ABSENT: hearing changes Nose, Mouth, and Throat: ABSENT: as per HPI, headache(s), mouth pain, sore throat, vertigo, other Cardiovascular: ABSENT: chest pain, dyspnea on exertion, edema, orthropnea, palpitations Respiratory: ABSENT: cough, hemoptysis Gastrointestinal: ABSENT: abdominal pain, constipation, diarrhea, hematemesis, hematochezia, nausea, vomiting Genitourinary: ABSENT: dysuria, hematuria Musculoskeletal: ABSENT: joint swelling Integumentary: ABSENT: rash, wounds Neurological: ABSENT: abnormal gait, abnormal speech, confusion, dizziness, focal weakness, syncope Psychiatric: ABSENT: anxiety, depression, homidical ideation, suicidal ideation Endocrine: ABSENT: cold intolerance, heat intolerance, polydipsia, polyuria Hematologic/Lymphatic: ABSENT: easy bleeding, easy bruising, lymphadenopathy Allergic/Immunologic: ABSENT: seasonal rhinorrhea Physical Exam Vital Signs: Temp Pulse Resp BP Pulse Ox 98.5 F 70 16 164/73 H 96 07/17/19 17:17 07/17/19 17:17 07/17/19 17:17 07/17/19 17:17 07/17/19 17:17 Intake & Output 07/16/19 07/17/19 07/18/19 06:59 06:59 06:59 Weight 109 kg General appearance: PRESENT: mild distress - due to pain in right eye, obese Eye exam: PRESENT: conjunctival injection - right eye, EOMI, PERRLA. ABSENT: pe riorbital swelling, scleral icterus Ear exam: PRESENT: normal external ear exam Mouth exam: PRESENT: moist, tongue midline Teeth exam: PRESENT: edentulous Neck exam: PRESENT: full ROM. ABSENT: carotid bruit, JVD, lymphadenopathy, thyromegaly Respiratory exam: PRESENT: clear to auscultation nikolas Cardiovascular exam: PRESENT: RRR. ABSENT: diastolic murmur, rubs, systolic murmur Vascular exam: ABSENT: pallor GI/Abdominal exam: PRESENT: normal bowel sounds, soft. ABSENT: distended, guarding, mass, organolmegaly, rebound, tenderness Rectal exam: PRESENT: deferred Extremities exam: ABSENT: pedal edema Musculoskeletal exam: PRESENT: normal inspection Neurological exam: PRESENT: alert, awake, oriented to person, oriented to place, oriented to time, oriented to situation, CN II-XII grossly intact. ABSENT: motor sensory deficit Psychiatric exam: PRESENT: appropriate affect, normal mood. ABSENT: homicidal ideation, suicidal ideation Skin exam: PRESENT: dry, warm Results Laboratory Results: 07/17/19 11:53 07/17/19 11:53 07/17/19 07/17/19 07/17/19 11:53 11:53 11:53 WBC 11.5 H RBC 4.51 Hgb 14.4 Hct 42.7 MCV 95 MCH 32.0 MCHC 33.8 RDW 13.5 Plt Count 308 Seg Neutrophils % 57.1 Sodium 141.6 Potassium 4.3 Chloride 106 Carbon Dioxide 23 Anion Gap 13 BUN 10 Creatinine 0.56 Est GFR ( Amer) > 60 Glucose 90 Calcium 10.2 Total Bilirubin 0.6 AST 46 H Alkaline Phosphatase 79 Total Protein 8.3 H Albumin 4.7 Urine Color YELLOW Urine Appearance CLOUDY Urine pH 5.0 Ur Specific [place] 1.020 Urine Protein 100 H Urine Glucose (UA) NEGATIVE Urine Ketones TRACE H Urine Blood NEGATIVE Urine Nitrite NEGATIVE Ur Leukocyte Esterase NEGATIVE Ur Squamous Epith Cells TOO MANY TO COUNT Assessment & Plan - Diagnosis (1) Chorioretinitis, right eye Is this a current diagnosis for this admission?: Yes Plan: See admitting attending physician orders for details about care plan. (2) Hypopyon of right eye Is this a current diagnosis for this admission?: Yes Plan: See admitting attending physician orders for details about care plan. (3) Diabetes mellitus type 2 in obese Is this a current diagnosis for this admission?: Yes Plan: See admitting attending physician orders for details about care plan. (4) HTN (hypertension) Qualifiers: Hypertension type: essential hypertension Qualified Code(s): I10 - Essential (primary) hypertension Is this a current diagnosis for this admission?: Yes Plan: See admitting attending physician orders for details about care plan. (5) HLD (hyperlipidemia) Qualifiers: Hyperlipidemia type: unspecified Qualified Code(s): E78.5 - Hyperlipidemia, unspecified Is this a current diagnosis for this admission?: Yes Plan: See admitting attending physician orders for details about care plan. (6) Mixed anxiety and depressive disorder Is this a current diagnosis for this admission?: Yes Plan: See admitting attending physician orders for details about care plan. (7) Vitamin D deficiency Is this a current diagnosis for this admission?: Yes Plan: See admitting attending physician orders for details about care plan. - Time Time Spent: 50 to 70 Minutes Medications reviewed and adjusted accordingly: Yes Anticipated discharge: Home with Homehealth Within: Other - Inpatient Certification Based on my medical assessment, after consideration of the patient's comorbidities, presenting symptoms, or acuity I expect that the services needed warrant INPATIENT care.: Yes I certify that my determination is in accordance with my understanding of Medicare's requirements for reasonable and necessary INPATIENT services [42 CFR 412.3e].: Yes Medical Necessity: Significant Comorbidiites Make Outpatient Treatment Too Risky, Need Close Monitoring Due to Risk of Patient Decompensation, Need For IV Fluids, Need For Continuous Telemetry Monitoring, Risk of Complication if Not Cared For in Hospital, Risk of Diagnosis Which Will Require Inpatient Eval/Care/Monitoring Post Hospital Care: D/C Energy Assistant Documentation - Plan Summary Plan Summary: See admitting attending physician orders for details about care plan.
[2019-07-17] MEDS ORDERED: ATORVASTATIN CALCIUM 10 MG TABLET PO SCH (22:00)
[2019-07-17] MEDS ORDERED: (PENDING PHARMACY ID) (Rosuvastatin Calcium [Crestor 20 Mg Tablet] 20 MG) PO SCH (22:00)
[2019-07-18] MEDS: PANTOPRAZOLE SODIUM 20 MG TABLET.DR PO SCH (07:07)
[2019-07-18] MEDS: INSULIN LISPRO 100 UNIT/ML 3 ML VIAL SUBCUT SCH ×4 (07:48→22:07)
[2019-07-18] MEDS: ASPIRIN 81 MG TABLET, ENT COATED PO SCH (09:39)
[2019-07-18] MEDS: METOPROLOL TARTRATE 25 MG TABLET PO SCH ×2 (09:39→22:08)
[2019-07-18] MEDS: SERTRALINE HCL 50 MG TABLET PO SCH (09:39)
[2019-07-18] MEDS: ENOXAPARIN SODIUM INJ 40 MG/0.4 ML DISP.SYRIN SUBCUT SCH (09:39)
[2019-07-18] MEDS: GLIMEPIRIDE 1 MG TABLET PO SCH (09:40)
[2019-07-18] MEDS: METFORMIN HCL 500 MG TABLET PO SCH ×2 (09:40→17:37)
[2019-07-18] MEDS: AMLODIPINE BESYLATE 10 MG TABLET PO SCH (09:40)
[2019-07-18] MEDS: LISINOPRIL 10 MG TABLET PO SCH (09:40)
[2019-07-18] MEDS: METHYLPREDNISOLONE SOD SUCC 1,000 MG in DEXTROSE 5%-WATER 100 ML IV SCH (09:41)
[2019-07-18] MEDS ORDERED: METHYLPREDNISOLONE INJ 1000 MG VIAL IV SCH (10:00)
--- NOTE | 2019-07-18 17:30 | PDOC PROGRESS REPORT ---
Subjective Progress Note for:: 07/18/19 Subjective:: Patient reported significant resolution of her right eye symptoms. No more pain, irritation, or discharge. Reason For Visit: RIGHT CHORIORETINAL INFLAMATION, DM TYPE 2, HTN Physical Exam Vital Signs: Temp Pulse Resp BP Pulse Ox 98.4 F 58 L 14 110/65 100 07/18/19 16:00 07/18/19 16:00 07/18/19 16:00 07/18/19 16:00 07/18/19 16:00 Intake & Output 07/17/19 07/18/19 07/19/19 06:59 06:59 06:59 Intake Total 340 Output Total 0 Balance 340 Weight 106.4 kg General appearance: PRESENT: no acute distress, obese Head exam: PRESENT: atraumatic, normocephalic Eye exam: PRESENT: conjunctival injection. ABSENT: scleral icterus Ear exam: PRESENT: normal external ear exam Mouth exam: PRESENT: moist Respiratory exam: PRESENT: clear to auscultation nikolas Cardiovascular exam: PRESENT: RRR. ABSENT: diastolic murmur, rubs, systolic murmur Vascular exam: ABSENT: pallor GI/Abdominal exam: PRESENT: normal bowel sounds, soft. ABSENT: distended, guarding, mass, organolmegaly, rebound, tenderness Musculoskeletal exam: PRESENT: normal inspection Neurological exam: PRESENT: alert, awake, oriented to person, oriented to place, oriented to time, oriented to situation, CN II-XII grossly intact. ABSENT: motor sensory deficit Psychiatric exam: PRESENT: appropriate affect, normal mood. ABSENT: homicidal ideation, suicidal ideation Skin exam: PRESENT: dry, warm Results Laboratory Results: 07/17/19 11:53 07/17/19 11:53 Assessment & Plan - Diagnosis (1) Chorioretinitis, right eye Is this a current diagnosis for this admission?: Yes (2) Hypopyon of right eye Is this a current diagnosis for this admission?: Yes (3) Diabetes mellitus type 2 in obese Is this a current diagnosis for this admission?: Yes (4) HTN (hypertension) Qualifiers: Hypertension type: essential hypertension Qualified Code(s): I10 - Essential (primary) hypertension Is this a current diagnosis for this admission?: Yes (5) HLD (hyperlipidemia) Qualifiers: Hyperlipidemia type: unspecified Qualified Code(s): E78.5 - Hyperlipidemia, unspecified Is this a current diagnosis for this admission?: Yes (6) Mixed anxiety and depressive disorder Is this a current diagnosis for this admission?: Yes (7) Vitamin D deficiency Is this a current diagnosis for this admission?: Yes - Time Time Spent with patient: 25-34 minutes Anticipated discharge: Home with Homehealth Within: Other - Inpatient Certification Based on my medical assessment, after consideration of the patient's comorbidities, presenting symptoms, or acuity I expect that the services needed warrant INPATIENT care.: Yes I certify that my determination is in accordance with my understanding of Medicare's requirements for reasonable and necessary INPATIENT services [42 CFR 412.3e].: Yes Medical Necessity: Significant Comorbidiites Make Outpatient Treatment Too Risky, Need Close Monitoring Due to Risk of Patient Decompensation, Risk of Complication if Not Cared For in Hospital, Risk of Diagnosis Which Will Require Inpatient Eval/Care/Monitoring Post Hospital Care: D/C Assistant Reading Teacher Documentation - Plan Summary Plan Summary: Continue current medical management. Possible discharge home tomorrow.
[2019-07-18] MEDS: ATORVASTATIN CALCIUM 40 MG TABLET PO SCH (22:08)
[2019-07-19] MEDS: PANTOPRAZOLE SODIUM 20 MG TABLET.DR PO SCH (05:40)
[2019-07-19 08:20] VITALS: BP 110/65
[2019-07-19] MEDS: INSULIN LISPRO 100 UNIT/ML 3 ML VIAL SUBCUT SCH ×2 (08:29→11:44)
[2019-07-19] MEDS: AMLODIPINE BESYLATE 10 MG TABLET PO SCH (09:34)
[2019-07-19] MEDS: GLIMEPIRIDE 1 MG TABLET PO SCH (09:34)
[2019-07-19] MEDS: ENOXAPARIN SODIUM INJ 40 MG/0.4 ML DISP.SYRIN SUBCUT SCH (09:34)
[2019-07-19] MEDS: METFORMIN HCL 500 MG TABLET PO SCH (09:34)
[2019-07-19] MEDS: SERTRALINE HCL 50 MG TABLET PO SCH (09:34)
[2019-07-19] MEDS: ASPIRIN 81 MG TABLET, ENT COATED PO SCH (09:34)
[2019-07-19] MEDS: METOPROLOL TARTRATE 25 MG TABLET PO SCH (09:36)
[2019-07-19] MEDS: LISINOPRIL 10 MG TABLET PO SCH (09:37)
[2019-07-19] MEDS: METHYLPREDNISOLONE SOD SUCC 1,000 MG in DEXTROSE 5%-WATER 100 ML IV SCH (10:14)
--- NOTE | 2019-07-21 18:54 | PDOC DISCHARGE SUMMARY ---
General - Admit/Disc Date/PCP Admission Date/Primary Care Provider: 07/17/19 13:58 RUPESH BULLOCK MD Discharge Date: 07/19/19 - Discharge Diagnosis (1) Chorioretinitis, right eye Is this a current diagnosis for this admission?: Yes (2) Hypopyon of right eye Is this a current diagnosis for this admission?: Yes (3) Diabetes mellitus type 2 in obese Is this a current diagnosis for this admission?: Yes (4) HTN (hypertension) Is this a current diagnosis for this admission?: Yes (5) HLD (hyperlipidemia) Is this a current diagnosis for this admission?: Yes (6) Mixed anxiety and depressive disorder Is this a current diagnosis for this admission?: Yes (7) Vitamin D deficiency Is this a current diagnosis for this admission?: Yes - Additional Information Resuscitation Status: Full Code Discharge Diet: Cardiac, Diabetic Discharge Activity: Activity As Tolerated Home Medications: Amlodipine Besylate [Norvasc 10 mg Tablet] 10 mg PO DAILY 07/17/19 Aspirin [Adult Low Dose Aspirin EC] 81 mg PO DAILY 07/17/19 Ergocalciferol (Vitamin D2) [Drisdol] 50,000 unit PO .ONCE WEEKLY @1000 07/17/19 Glimepiride [Amaryl] 2 mg PO DAILY 07/17/19 Lisinopril [Prinivil 40 mg Tablet] 40 mg PO DAILY 07/17/19 Metformin HCl 500 mg PO BID 07/17/19 Metoprolol Tartrate [Lopressor 25 mg Tablet] 25 mg PO Q12 07/17/19 Omeprazole 20 mg PO DAILY 07/17/19 Rosuvastatin Calcium [Crestor 20 mg Tablet] 20 mg PO QHS 07/17/19 Sertraline HCl [Zoloft] 100 mg PO DAILY 07/17/19 History of Present Illness Patient complains of: Right eye pain History of Present Illness: CHARLOTTE SOMERS is a 69 year old female known to my practice who presented to Dr. Billings, retinal specialist, due to pain and redness in her right eye for several weeks. Patient admitted to noncompliance with usage of prescribed ophthalmic solution. She reported worsening of her symptoms after discontinuation of the ophthalmic solution. Due to worsening of her diagnosed chorioretinal inflammation. It was recommended that she be treated with high dose IV Solu Medrol and advised hospitalization due to her morbidities including diabetes mellitus. She reported significant pain in her right eye and difficulty with keeping the eyes open due to associated pain and watery discharge. She denied any fever or chills. No headache, dizziness, nausea, or vomiting. 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 Hospital Course Hospital Course: Patient was admitted for IV steroid therapy for her right eye chorioretinal inflammation with concern for her diabetes mellitus and consequential severe hyperglycemia while on IV steroid therapy. Her POC glucose monitoring were satisfactory. She had IV Solu Medrol 1 gm daily x 3 days while on admission. She will follow up with Dr. Billings, retinal specialist, as instructed before admission to the hospital. She will follow up in the office as instructed upon discharge. Physical Exam Vital Signs: Temp Pulse Resp BP Pulse Ox 98.1 F 51 L 18 110/65 98 07/19/19 08:18 07/19/19 08:18 07/19/19 08:18 07/19/19 08:18 07/19/19 08:18 Intake & Output 07/18/19 07/19/19 07/20/19 06:59 06:59 06:59 Intake Total 340 1650 Output Total 0 Balance 340 1650 Weight 106.4 kg 107.2 kg Physical Exam: General appearance: PRESENT: no acute distress, obese Head exam: PRESENT: atraumatic, normocephalic Eye exam: PRESENT: conjunctival injection. Protosis ABSENT: scleral icterus Ear exam: PRESENT: normal external ear exam Mouth exam: PRESENT: moist Respiratory exam: PRESENT: clear to auscultation nikolas Cardiovascular exam: PRESENT: RRR. ABSENT: diastolic murmur, rubs, systolic murmur GI/Abdominal exam: PRESENT: normal bowel sounds, soft. ABSENT: distended, guarding, mass, organomegaly, rebound, tenderness Musculoskeletal exam: PRESENT: normal inspection Neurological exam: PRESENT: alert, awake, oriented to person, oriented to place, oriented to time, oriented to situation, CN II-XII grossly intact. ABSENT: motor sensory deficit Psychiatric exam: PRESENT: appropriate affect, normal mood. ABSENT: homicidal ideation, suicidal ideation Skin exam: PRESENT: dry, warm Results Laboratory Results: 07/17/19 11:53 07/17/19 11:53 Qualifiers - * PATIENT BEING DISCHARGED WITH ANY OF THE FOLLOWING DIAGNOSIS: No Acute Heart Failure - Is this a Heart Failure Patient?: No Plan Discharge Plan: D/C home today. Follow up with Dr. Billings and myself as instructed upon discharge.
== END 2019-07-19 13:43 | disposition home or self-care (01) ==
LOC: ER 09:32 → INTOOBSV 13:58 → EH 13:58 → 4S 19:06
PROVIDERS: ADMIT Internal Medicine Geriatric Medicine; ATTEND Internal Medicine Geriatric Medicine
DX: E11.39 Type 2 diabetes mellitus with other diabetic ophthalmic complication (principal); H30.891 Other chorioretinal inflammations, right eye; H20.051 Hypopyon, right eye; E11.9 Type 2 diabetes mellitus without complications; I10 Essential (primary) hypertension; E78.5 Hyperlipidemia, unspecified; F41.3 Other mixed anxiety disorders; F32.9 Major depressive disorder, single episode, unspecified; E55.9 Vitamin D deficiency, unspecified; E66.9 Obesity, unspecified; H43.89 Other disorders of vitreous body; F17.200 Nicotine dependence, unspecified, uncomplicated; H54.62 Unqualified visual loss, left eye, normal vision right eye; Z79.82 Long term (current) use of aspirin; Z79.84 Long term (current) use of oral hypoglycemic drugs; Z91.19 Patient's noncompliance with other medical treatment and regimen
CPT/HCPCS: 99284; 96365; 36415; 82962 ×3; 85025; 80053; 81001; G0378 ×2; A9270 ×16; J2930 ×3; J1650 ×3; J2060; J3490; J7060 ×2; J1815

== ENCOUNTER 2019-09-06 13:54 | Observation (INO) | payer MEDICARE, MEDICAID ==
--- NOTE | 2019-09-06 14:32 | ER Document Report ---
ED Medical Screen (RME) - General Chief Complaint: Sore Throat Stated Complaint: SORE THROAT Time Seen by Provider: 09/06/19 14:26 Primary Care Provider: JOSE RODRIGUEZ MD [Primary Care Provider] - Follow up as needed Mode of Arrival: Ambulatory Information source: Patient Notes: 69-year-old female presented to ED for complaint of sore throat and problem with her tonsils she states that last time she had problems with her tonsils her lips and tongue were swollen. Today it looks like the right side of her lip and side of her face is swollen. She is alert oriented respirations regular nonlabored speaking in full sentences. Patient is on lisinopril.. She states she is been in here for swollen face before they told her it was almost too late and that it was an infection in her tonsils. States she smokes about 8 cigarettes a day denies use of alcohol or drugs. States she just noticed the swelling this morning and it is getting progressively worse. I have greeted and performed a rapid initial assessment of this patient. A comprehensive ED assessment and evaluation of the patient, analysis of test results and completion of medical decision making process will be conducted by an additional ED providers. TRAVEL OUTSIDE OF THE [place] IN LAST 30 DAYS: No - Related Data Allergies/Adverse Reactions: No Known Allergies Allergy (Verified 07/17/19 09:34) Past Medical History - Past Medical History Cardiac Medical History: Reports: Hx Hypercholesterolemia, Hx Hypertension - METOPROLOL, LISINOPRIL, NORVASC Denies: Hx Coronary Artery Disease, Hx Heart Attack Pulmonary Medical History: Denies: Hx Asthma, Hx Bronchitis, Hx COPD, Hx Pneumonia Neurological Medical History: Denies: Hx Cerebrovascular Accident, Hx Seizures Endocrine Medical History: Reports: Hx Diabetes Mellitus Type 2 Renal/ Medical History: Denies: Hx Peritoneal Dialysis GI Medical History: Denies: Hx Hepatitis, Hx Hiatal Hernia, Hx Ulcer Musculoskeltal Medical History: Denies Hx Arthritis Infectious Medical History: Denies: Hx Hepatitis Past Surgical History: Denies: Hx Hysterectomy, Hx Mastectomy, Hx Open Heart Surgery, Hx Pacemaker - Immunizations Hx Diphtheria, Pertussis, Tetanus Vaccination: No Physical Exam - Vital signs Vitals: Temp Pulse Resp BP Pulse Ox 98.3 F 89 18 126/59 H 100 09/06/19 14:11 09/06/19 14:11 09/06/19 14:11 09/06/19 14:11 09/06/19 14:11 Course - Vital Signs Vital signs: Temp Pulse Resp BP Pulse Ox 98.3 F 89 18 126/59 H 100 09/06/19 14:11 09/06/19 14:11 09/06/19 14:11 09/06/19 14:11 09/06/19 14:11 Doctor's Discharge - Discharge Referrals: JOSE RODRIGUEZ MD [Primary Care Provider] - Follow up as needed
[2019-09-06] MEDS ORDERED: DIPHENHYDRAMINE HCL 50 MG/ML VIAL IV ONE (14:36)
[2019-09-06] MEDS ORDERED: FAMOTIDINE INJ/PF 20 MG/2 ML SDV IV ONE (14:36)
[2019-09-06] MEDS ORDERED: NORMAL SALINE 1000 ML 1,000 ML IV ONE (15:16)
[2019-09-06] MEDS ORDERED: METHYLPREDNISOLONE INJ 125 MG/2 ML SDV IV ONE (15:16)
[2019-09-06 15:29] LABS: HEMOGLOBIN 11.4 g/dL (12.0-15.5); MEAN CORPUSCULAR HEMOGLOBIN 32.1 pg (27.0-33.4); MEAN CORPUSCULAR HGB CONC 33.7 g/dL (32.0-36.0); MEAN CORPUSCULAR VOLUME 95 fl (80-97); PLATELET COUNT 564 10^3/uL (150-450); RED BLOOD COUNT 3.57 10^6/uL (3.72-5.28); RED CELL DISTRIBUTION WIDTH 14.7 % (11.5-14.0); WHITE BLOOD COUNT 14.5 10^3/uL (4.0-10.5)
[2019-09-06 15:45] LABS: ABSOLUTE LYMPHOCYTES# (MANUAL) 3.2 10^3/uL (0.5-4.7); ABSOLUTE MONOCYTES # (MANUAL) 1.3 10^3/uL (0.1-1.4); BASOPHILS % (MANUAL) 0 % (0-2); EOSINOPHILS % (MANUAL) 3 % (0-6); LYMPHOCYTES % (MANUAL) 22 % (13-45); MONOCYTES % (MANUAL) 9 % (3-13); SEGMENTED NEUTROPHILS % (MAN) 66 % (42-78); TOTAL CELLS COUNTED 100
[2019-09-06 15:46] LABS: ANISOCYTOSIS SLIGHT; PLATELET COMMENT INCREASED
[2019-09-06 15:55] LABS: ALBUMIN 3.8 g/dL (3.5-5.0); ALKALINE PHOSPHATASE 123 U/L (38-126); ANION GAP 14 (5-19); ASPARTATE AMINO TRANSFERASE 100 U/L (14-36); BILIRUBIN,DIRECT 0.2 mg/dL (0.0-0.4); BILIRUBIN,TOTAL 0.5 mg/dL (0.2-1.3); BLOOD UREA NITROGEN 8 mg/dL (7-20); CALCIUM 9.8 mg/dL (8.4-10.2); CARBON DIOXIDE 20 mmol/L (22-30); CHLORIDE 109 mmol/L (98-107); GLUCOSE 80 mg/dL (75-110); POTASSIUM 5.1 mmol/L (3.6-5.0); TOTAL PROTEIN 7.7 g/dL (6.3-8.2)
--- NOTE | 2019-09-06 15:58 | ER Document Report ---
ED Oral Problem - General Chief Complaint: Swollen Glands Stated Complaint: SORE THROAT Time Seen by Provider: 09/06/19 14:26 Mode of Arrival: Ambulatory Notes: Ms. Dennis is a 69 yo f w/ PMH HTN on lisinopril, hyperlipidemia, diabetes, mixed anxiety and depression presenting to the ED for facial swelling. States she woke up this morning and noted that the right side of face was slightly more swollen. As the day progressed, the swelling became a little bit more noticeable. She denies any difficulty swallowing secretions or drinking/eating. She feels as if 1 of her pills might have gotten stuck but has since gone down. She denies any change in voice. Patient is continuing to take lisinopril. She also indicates that she had one previous similar episode about a year ago and she was not taken off her lisinopril at that point in time. Patient denies any difficulty breathing, swallowing, chest pain, abdominal pain, nausea, vomiting or diarrhea. TRAVEL OUTSIDE OF THE [place] IN LAST 30 DAYS: No - Related Data Allergies/Adverse Reactions: No Known Allergies Allergy (Verified 07/17/19 09:34) Past Medical History - General Information source: Patient - Social History Smoking Status: Current Every Day Smoker Chew tobacco use (# tins/day): No Frequency of alcohol use: None Drug Abuse: None Family History: Reviewed & Not Pertinent Patient has suicidal ideation: No Patient has homicidal ideation: No - Past Medical History Cardiac Medical History: Reports: Hx Hypercholesterolemia, Hx Hypertension - METOPROLOL, LISINOPRIL, NORVASC Denies: Hx Coronary Artery Disease, Hx Heart Attack Pulmonary Medical History: Denies: Hx Asthma, Hx Bronchitis, Hx COPD, Hx Pneumonia Neurological Medical History: Denies: Hx Cerebrovascular Accident, Hx Seizures Endocrine Medical History: Reports: Hx Diabetes Mellitus Type 2 Renal/ Medical History: Denies: Hx Peritoneal Dialysis GI Medical History: Denies: Hx Hepatitis, Hx Hiatal Hernia, Hx Ulcer Musculoskeletal Medical History: Denies Hx Arthritis Infectious Medical History: Denies: Hx Hepatitis Past Surgical History: Denies: Hx Hysterectomy, Hx Mastectomy, Hx Open Heart Surgery, Hx Pacemaker - Immunizations Hx Diphtheria, Pertussis, Tetanus Vaccination: No Review of Systems - Review of Systems Constitutional: No symptoms reported EENT: See HPI, Mouth swelling. denies: Throat pain, Difficulty swallowing, Throat swelling Cardiovascular: No symptoms reported Respiratory: No symptoms reported Gastrointestinal: No symptoms reported Genitourinary: No symptoms reported Female Genitourinary: No symptoms reported Musculoskeletal: No symptoms reported Skin: No symptoms reported Hematologic/Lymphatic: No symptoms reported Neurological/Psychological: No symptoms reported Physical Exam - Vital signs Vitals: Temp Pulse Resp BP Pulse Ox 98.3 F 89 18 126/59 H 100 09/06/19 14:11 09/06/19 14:11 09/06/19 14:11 09/06/19 14:11 09/06/19 14:11 Interpretation: Normal - General General appearance: Appears well, Alert - HEENT Head: Normocephalic, Atraumatic Eyes: Normal Pupils: PERRL Ears: Normal Nasal: Normal Mouth/Lips: Angioedema, Other - Swelling to the right upper and right lower lip. Swelling to the right cheek. Uvula is midline without any swelling or deviation. No pooling of secretions noted. Mucous membranes: Moist - Respiratory Respiratory status: No respiratory distress Chest status: Nontender Breath sounds: Normal Chest palpation: Normal - Cardiovascular Rhythm: Regular Heart sounds: Normal auscultation Murmur: No - Abdominal Inspection: Normal Distension: No distension Bowel sounds: Normal Tenderness: Nontender Organomegaly: No organomegaly - Back Back: Normal, Nontender - Extremities General upper extremity: Normal inspection, Nontender, Normal color, Normal ROM, Normal temperature General lower extremity: Normal inspection, Nontender, Normal color, Normal ROM, Normal temperature, Normal weight bearing. No: Diana's sign - Neurological Neuro grossly intact: Yes Cognition: Normal Orientation: AAOx4 Sycamore Coma Scale Eye Opening: Spontaneous Sycamore Coma Scale Verbal: Oriented Sycamore Coma Scale Motor: Obeys Commands Sycamore Coma Scale Total: 15 Speech: Normal Motor strength normal: LUE, RUE, LLE, RLE Sensory: Normal - Psychological Associated symptoms: Normal affect, Normal mood - Skin Skin Temperature: Warm Skin Moisture: Dry Skin Color: Normal Course - Re-evaluation Re-evalutation: Patient is generally well-appearing and nontoxic. Initial vitals within normal limits. Differential diagnosis includes angioedema, anaphylaxis, allergic reaction, or oral trauma. Given that the patient is actively using lisinopril, likely angioedema related to known common effect of lisinopril. Patient recommended to not take any further doses of lisinopril and discussed this with her doctor. However given the swelling of the oropharynx, will recommend a dmission to the hospital for further care and observation of the airway. She ordered for Solu-Medrol 125 mg IV, as well as a liter of fluid. Benadryl and famotidine were ordered from triage. Patient amenable to admission. She indicated that she is quite scared of elevators and would require an anxiolytic if she needs to be transported in the elevator. 09/06/19 16:[address] Rutledge. Being covered by Dr. Franks. 09/06/19 16:[address] Franks for admission as observation to [facility]. Patient remains hemodynamically stable without any change in her oral swelling. 09/06/19 16:52 No change in voice or ability to swallow. Right upper lip swelling seems to have increased slightly and now slightly crossing the midline. Right lower lip and cheek are unchanged. - Vital Signs Vital signs: Temp Pulse Resp BP Pulse Ox 98.3 F 89 19 136/75 H 100 09/06/19 14:11 09/06/19 14:11 09/06/19 16:21 09/06/19 16:21 09/06/19 16:21 - Laboratory Result Diagrams: 09/06/19 15:10 09/06/19 15:10 Laboratory results interpreted by me: 09/06/19 09/06/19 15:10 15:10 WBC 14.5 H RBC 3.57 L Hgb 11.4 L Hct 34.0 L RDW 14.7 H Plt Count 564 H Abs Neuts (Manual) 9.6 H Potassium 5.1 H Chloride 109 H Carbon Dioxide 20 L AST 100 H Discharge - Discharge Clinical Impression: Angioedema Qualifiers: Encounter type: initial encounter Qualified Code(s): T78.3XXA - Angioneurotic edema, initial encounter Adverse reaction to lisinopril Qualifiers: Encounter type: initial encounter Qualified Code(s): T46.4X5A - Adverse effect of [id number]-[id number] inhibitors, initial encounter Condition: Good Disposition: ADMITTED OBSERVATION Admitting Provider: Aamir Unit Admitted: [facility]
[2019-09-06] MEDS ORDERED: INFLUENZA QUAD (6MOS+) 2019-20 VAC 0.5 ML SYR IM ONE (18:42)
[2019-09-06] MEDS ORDERED: DEXTROSE 40% GEL 15 GM TUBE PO PRN ×2 (19:21)
[2019-09-06] MEDS ORDERED: GLUCAGON,HUMAN RECOMB 1 MG INJ IM PRN (19:21)
[2019-09-06] MEDS ORDERED: DEXTROSE 50%-WATER 25 GM/50 ML DISP.SYRIN IV PRN ×2 (19:21)
[2019-09-06] MEDS ORDERED: NORMAL SALINE 250 ML IV PRN ×2 (19:22)
[2019-09-06] MEDS ORDERED: ERGOCALCIFEROL (VITAMIN D2) 50000 UNIT (1.25 MG) CAPSULE PO SCH (20:00)
[2019-09-06] MEDS: DIPHENHYDRAMINE HCL 50 MG/ML VIAL IV PRN (20:38)
[2019-09-06] MEDS: PREDNISOLONE ACETATE 1% OPH SUSP 5 ML OD SCH ×4 (20:42→22:44)
[2019-09-06] MEDS: FAMOTIDINE INJ/PF 20 MG/2 ML SDV IV SCH (21:40)
[2019-09-06] MEDS: METHYLPREDNISOLONE INJ 125 MG/2 ML SDV IV SCH (21:40)
[2019-09-06] MEDS: METOPROLOL TARTRATE 25 MG TABLET PO SCH (21:40)
[2019-09-06] MEDS: ATORVASTATIN CALCIUM 40 MG TABLET PO SCH (21:40)
[2019-09-06 21:53] LABS: INTERNATIONAL RATION (INR) 1.19; PROTHROMBIN TIME 15.2 SEC (11.4-15.4)
[2019-09-06 21:54] LABS: PARTIAL THROMBOPLASTIN TIME 34.8 SEC (23.5-35.8)
[2019-09-06] MEDS ORDERED: METOPROLOL TARTRATE 25 MG TABLET PO SCH (22:00)
[2019-09-07] MEDS ORDERED: DIPHENHYDRAMINE HCL 50 MG/ML VIAL IV ONE (00:10)
[2019-09-07] MEDS: PREDNISOLONE ACETATE 1% OPH SUSP 5 ML OD SCH ×24 (00:26→22:04)
[2019-09-07] MEDS: DIPHENHYDRAMINE HCL 50 MG/ML VIAL IV PRN ×2 (00:51→05:04)
[2019-09-07] MEDS: METHYLPREDNISOLONE INJ 125 MG/2 ML SDV IV SCH ×2 (05:03→13:08)
[2019-09-07] MEDS ORDERED: AMLODIPINE BESYLATE 10 MG TABLET PO SCH (10:00)
[2019-09-07] MEDS: METOPROLOL TARTRATE 25 MG TABLET PO SCH ×2 (10:08→21:33)
[2019-09-07] MEDS: AMLODIPINE BESYLATE 10 MG TABLET PO SCH (10:08)
[2019-09-07] MEDS: METFORMIN HCL 500 MG TABLET PO SCH ×2 (10:08→18:03)
[2019-09-07] MEDS: FAMOTIDINE INJ/PF 20 MG/2 ML SDV IV SCH ×2 (10:08→21:33)
[2019-09-07] MEDS: SERTRALINE HCL 50 MG TABLET PO SCH (10:08)
[2019-09-07] MEDS: GLIMEPIRIDE 1 MG TABLET PO SCH (10:11)
[2019-09-07] MEDS: ATORVASTATIN CALCIUM 40 MG TABLET PO SCH (21:33)
--- NOTE | 2019-09-07 21:56 | PDOC H&P ---
History of Present Illness Admission Date/PCP: 09/06/19 16:24 [facility] Patient complains of: Facial swelling History of Present Illness: CHARLOTTE SOMERS is a 69 year old female patient known to my practice who presented to the ED with several hours of right sided facial swelling. Patient reported waking up with facial swelling on the day of her presentation and swelling have been increasing in size and involved area that currently include her lips. She denied any trauma, instrumentation or injury involving right side of her face. She denied any insect bite or dental infection. She recently had tooth extraction in preparation denture or implant. She denied any fever or chills. She denied any chest pain, palpitation, or difficulty with breathing. She denied any coughing or hoarseness. She denied illicit drug usage. She reported similar facial swelling about a year ago and was taking off lisinopril. Patient medication did revealed that patient continue to take lisinopril due to inability to procure prescribed replacement medication. She denied any abdominal pain, nausea, vomiting, diarrhea, or constipation. Her initial evaluation in the ED was remarkable for right sided facial swelling and leukocytosis. She was advised hospitalization for further evaluation and management. Her morbidities are as listed below. Past Medical History Cardiac Medical History: Reports: Hyperlipidema, Hypertension - METOPROLOL, LISINOPRIL, NORVASC Denies: Coronary Artery Disease, Myocardial Infarction Pulmonary Medical History: Denies: Asthma, Bronchitis, Chronic Obstructive Pulmonary Disease (COPD), Pneumonia Neurological Medical History: Denies: Seizures Endocrine Medical History: Reports: Diabetes Mellitus Type 2 GI Medical History: Denies: Hepatitis, Hiatal Hernia Musculoskeltal Medical History: Denies: Arthritis Psychiatric Medical History: Reports: Depression Hematology: Denies: Anemia, Sickle Cell Disease Past Surgical History Past Surgical History: Denies: Amputation, Hysterectomy, Mastectomy, Pacemaker Social History Smoking Status: Current Every Day Smoker Cigarettes Packs Per Day: 0.5 Electronic Cigarette use?: No Last Time Smoked: T Frequency of Alcohol Use: Heavy Hx Recreational Drug Use: No Drugs: None Hx Prescription Drug Abuse: No - Advance Directive Resuscitation Status: Full Code Family History Family History: Reviewed & Not Pertinent Parental Family History Reviewed: Yes Children Family History Reviewed: Yes Sibling(s) Family History Reviewed.: Yes Medication/Allergy Home Medications: Amlodipine Besylate [Norvasc 10 mg Tablet] 10 mg PO DAILY 07/17/19 Aspirin [Adult Low Dose Aspirin EC] 81 mg PO DAILY 07/17/19 Glimepiride [Amaryl] 2 mg PO DAILY 07/17/19 Lisinopril [Prinivil 40 mg Tablet] 40 mg PO DAILY 07/17/19 Metformin HCl 500 mg PO BID 07/17/19 Metoprolol Tartrate [Lopressor 25 mg Tablet] 25 mg PO Q12 07/17/19 Omeprazole 20 mg PO DAILY 07/17/19 Rosuvastatin Calcium [Crestor 20 mg Tablet] 20 mg PO QHS 07/17/19 Sertraline HCl [Zoloft] 100 mg PO DAILY 07/17/19 Prednisolone Acetate/Pf [Prednisolone Acet 1% Eye Drop] 1 drop OD Q2HWA 09/06/19 Prednisone 50 mg PO DAILY 09/06/19 Allergies/Adverse Reactions: lisinopril Allergy (Verified 09/07/19 11:09) Review of Systems Constitutional: ABSENT: chills, fever(s), headache(s), weight gain, weight loss Eyes: PRESENT: visual disturbances Ears: ABSENT: hearing changes Nose, Mouth, and Throat: ABSENT: as per HPI, headache(s), mouth pain, sore throat, vertigo, other Cardiovascular: ABSENT: chest pain, dyspnea on exertion, edema, orthropnea, palpitations Respiratory: ABSENT: cough, hemoptysis Gastrointestinal: ABSENT: abdominal pain, constipation, diarrhea, hematemesis, hematochezia, nausea, vomiting Genitourinary: ABSENT: dysuria, hematuria Musculoskeletal: ABSENT: joint swelling Integumentary: ABSENT: rash, wounds Neurological: ABSENT: abnormal gait, abnormal speech, confusion, dizziness, focal weakness, syncope Psychiatric: ABSENT: anxiety, depression, homidical ideation, suicidal ideation Hematologic/Lymphatic: ABSENT: easy bleeding, easy bruising, lymphadenopathy Allergic/Immunologic: ABSENT: seasonal rhinorrhea Physical Exam Vital Signs: Temp Pulse Resp BP Pulse Ox 98.0 F 60 17 103/73 98 09/06/19 17:34 09/06/19 17:34 09/06/19 17:34 09/06/19 17:34 09/06/19 17:34 Intake & Output 09/05/19 09/06/19 09/07/19 06:59 06:59 05:59 Intake Total 1240 Balance 1240 Weight 111.7 kg General appearance: PRESENT: no acute distress, obese Head exam: PRESENT: atraumatic, normocephalic Eye exam: PRESENT: conjunctiva pink, EOMI, PERRLA. ABSENT: scleral icterus Ear exam: ABSENT: normal external ear exam Mouth exam: PRESENT: moist, other - right sided facial and lips swelling Teeth exam: PRESENT: edentulous Throat exam: ABSENT: post pharyngeal erythema, tonsillar erythema, tonsillar exudate, tonsillogmegaly, other Neck exam: PRESENT: full ROM. ABSENT: carotid bruit, JVD, lymphadenopathy, thyromegaly Respiratory exam: PRESENT: clear to auscultation nikolas Cardiovascular exam: PRESENT: RRR. ABSENT: diastolic murmur, rubs, systolic murmur Vascular exam: ABSENT: pallor GI/Abdominal exam: PRESENT: normal bowel sounds, soft. ABSENT: distended, guarding, mass, organolmegaly, rebound, tenderness Rectal exam: PRESENT: deferred Extremities exam: ABSENT: pedal edema Musculoskeletal exam: PRESENT: deformity - related to multiple joints involvement with arthritis Neurological exam: PRESENT: alert, awake, oriented to person, oriented to place, oriented to time, oriented to situation, CN II-XII grossly intact. ABSENT: motor sensory deficit Psychiatric exam: PRESENT: appropriate affect, normal mood. ABSENT: homicidal ideation, suicidal ideation Skin exam: PRESENT: dry, warm Results Laboratory Results: 09/06/19 15:10 09/06/19 15:10 09/06/19 09/06/19 15:10 15:10 WBC 14.5 H RBC 3.57 L Hgb 11.4 L Hct 34.0 L MCV 95 MCH 32.1 MCHC 33.7 RDW 14.7 H Plt Count 564 H Seg Neutrophils % Not Reportable Sodium 143.4 Potassium 5.1 H Chloride 109 H Carbon Dioxide 20 L Anion Gap 14 BUN 8 Creatinine 0.55 Est GFR ( Amer) > 60 Glucose 80 Calcium 9.8 Total Bilirubin 0.5 AST 100 H Alkaline Phosphatase 123 Total Protein 7.7 Albumin 3.8 Assessment & Plan - Diagnosis (1) Angioedema Qualifiers: Encounter type: initial encounter Qualified Code(s): T78.3XXA - Angioneurotic edema, initial encounter Is this a current diagnosis for this admission?: Yes Plan: See admitting attending physician orders for details about care plan. (2) Diabetes mellitus type 2 in obese Is this a current diagnosis for this admission?: Yes Plan: See admitting attending physician orders for details about care plan. (3) HTN (hypertension) Qualifiers: Hypertension type: essential hypertension Qualified Code(s): I10 - Essential (primary) hypertension Is this a current diagnosis for this admission?: Yes Plan: See admitting attending physician orders for details about care plan. (4) HLD (hyperlipidemia) Qualifiers: Hyperlipidemia type: unspecified Qualified Code(s): E78.5 - Hyperlipidemia, unspecified Is this a current diagnosis for this admission?: Yes Plan: See admitting attending physician orders for details about care plan. (5) Mixed anxiety and depressive disorder Is this a current diagnosis for this admission?: Yes Plan: See admitting attending physician orders for details about care plan. - Time Time Spent: 50 to 70 Minutes Medications reviewed and adjusted accordingly: Yes Anticipated discharge: Home Within: Other - Inpatient Certification Based on my medical assessment, after consideration of the patient's comorbidities, presenting symptoms, or acuity I expect that the services needed warrant INPATIENT care.: Yes I certify that my determination is in accordance with my understanding of Medicare's requirements for reasonable and necessary INPATIENT services [42 CFR 412.3e].: Yes Medical Necessity: Significant Comorbidiites Make Outpatient Treatment Too Risky, Need Close Monitoring Due to Risk of Patient Decompensation, Need For Continuous Telemetry Monitoring, Risk of Complication if Not Cared For in Hospital, Risk of Diagnosis Which Will Require Inpatient Eval/Care/Monitoring Post Hospital Care: D/C Lead Case Manager Documentation - Plan Summary Plan Summary: See admitting attending physician orders for details about care plan.
--- NOTE | 2019-09-07 22:03 | PDOC PROGRESS REPORT ---
Subjective Progress Note for:: 09/07/19 Subjective:: Patient denied chest pain, difficulty with breathing or swallowing. No fever or chills.No nausea, vomiting, or abdominal pain. Tolerating oral feeding. Reason For Visit: PROGRESSIVE ANGIOEDEME,HTN, Physical Exam Vital Signs: Temp Pulse Resp BP Pulse Ox 97.8 F 67 16 120/90 H 99 09/07/19 19:16 09/07/19 19:16 09/07/19 19:16 09/07/19 19:16 09/07/19 19:16 Intake & Output 09/06/19 09/07/19 09/08/19 07:59 06:59 06:59 Intake Total 480 Balance 480 Weight General appearance: PRESENT: no acute distress, obese Head exam: PRESENT: atraumatic, normocephalic Ear exam: PRESENT: normal external ear exam Mouth exam: PRESENT: moist Teeth exam: PRESENT: edentulous Respiratory exam: PRESENT: clear to auscultation nikolas Cardiovascular exam: PRESENT: RRR. ABSENT: diastolic murmur, rubs, systolic murmur Vascular exam: ABSENT: pallor GI/Abdominal exam: PRESENT: normal bowel sounds, soft. ABSENT: distended, guarding, mass, organolmegaly, rebound, tenderness Extremities exam: ABSENT: pedal edema Neurological exam: PRESENT: alert, awake, oriented to person, oriented to place, oriented to time, oriented to situation, CN II-XII grossly intact. ABSENT: motor sensory deficit Psychiatric exam: PRESENT: appropriate affect, normal mood. ABSENT: homicidal ideation, suicidal ideation Skin exam: PRESENT: dry, warm Results Laboratory Results: 09/06/19 15:10 09/06/19 15:10 09/06/19 19:50 Blood Type B POSITIVE Assessment & Plan - Diagnosis (1) Angioedema Qualifiers: Encounter type: initial encounter Qualified Code(s): T78.3XXA - Angioneurotic edema, initial encounter Is this a current diagnosis for this admission?: Yes (2) Diabetes mellitus type 2 in obese Is this a current diagnosis for this admission?: Yes (3) HTN (hypertension) Qualifiers: Hypertension type: essential hypertension Qualified Code(s): I10 - E ssential (primary) hypertension Is this a current diagnosis for this admission?: Yes (4) HLD (hyperlipidemia) Qualifiers: Hyperlipidemia type: unspecified Qualified Code(s): E78.5 - Hyperlipidemia, unspecified Is this a current diagnosis for this admission?: Yes (5) Mixed anxiety and depressive disorder Is this a current diagnosis for this admission?: Yes - Time Time Spent with patient: 25-34 minutes Level of Care: IMCU Medications reviewed and adjusted accordingly: Yes Anticipated discharge: Home Within: Other - Inpatient Certification Based on my medical assessment, after consideration of the patient's comorbidities, presenting symptoms, or acuity I expect that the services needed warrant INPATIENT care.: Yes I certify that my determination is in accordance with my understanding of Medicare's requirements for reasonable and necessary INPATIENT services [42 CFR 412.3e].: Yes Medical Necessity: Significant Comorbidiites Make Outpatient Treatment Too Risky, Need Close Monitoring Due to Risk of Patient Decompensation, Need For Continuous Telemetry Monitoring, Risk of Complication if Not Cared For in Hospital, Risk of Diagnosis Which Will Require Inpatient Eval/Care/Monitoring Post 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
[2019-09-07 22:33] LABS: HEMATOCRIT 28.6 % (36.0-47.0); HEMOGLOBIN 9.7 g/dL (12.0-15.5); MEAN CORPUSCULAR HEMOGLOBIN 31.9 pg (27.0-33.4); MEAN CORPUSCULAR HGB CONC 33.9 g/dL (32.0-36.0); MEAN CORPUSCULAR VOLUME 94 fl (80-97); PLATELET COUNT 528 10^3/uL (150-450); RED BLOOD COUNT 3.04 10^6/uL (3.72-5.28); RED CELL DISTRIBUTION WIDTH 14.5 % (11.5-14.0); WHITE BLOOD COUNT 19.5 10^3/uL (4.0-10.5)
[2019-09-07 22:51] LABS: ANION GAP 11 (5-19); BLOOD UREA NITROGEN 23 mg/dL (7-20); CALCIUM 8.9 mg/dL (8.4-10.2); CARBON DIOXIDE 17 mmol/L (22-30); CHLORIDE 115 mmol/L (98-107); GLUCOSE 159 mg/dL (75-110); POTASSIUM 4.5 mmol/L (3.6-5.0)
[2019-09-07 22:55] LABS: ABSOLUTE LYMPHOCYTES# (MANUAL) 1.4 10^3/uL (0.5-4.7); ABSOLUTE MONOCYTES # (MANUAL) 0.8 10^3/uL (0.1-1.4); ANISOCYTOSIS SLIGHT; BAND NEUTROPHILS % (MANUAL) 5 % (3-5); BASOPHILS % (MANUAL) 0 % (0-2); EOSINOPHILS % (MANUAL) 0 % (0-6); LYMPHOCYTES % (MANUAL) 7 % (13-45); MONOCYTES % (MANUAL) 4 % (3-13); PLATELET COMMENT INCREASED; SEGMENTED NEUTROPHILS % (MAN) 84 % (42-78); TOTAL CELLS COUNTED 100
[2019-09-08] MEDS: PREDNISOLONE ACETATE 1% OPH SUSP 5 ML OD SCH ×11 (01:00→14:28)
[2019-09-08] MEDS: AMLODIPINE BESYLATE 10 MG TABLET PO SCH (09:56)
[2019-09-08] MEDS: METOPROLOL TARTRATE 25 MG TABLET PO SCH (09:56)
[2019-09-08] MEDS: METFORMIN HCL 500 MG TABLET PO SCH (09:56)
[2019-09-08] MEDS: FAMOTIDINE INJ/PF 20 MG/2 ML SDV IV SCH (09:56)
[2019-09-08] MEDS: SERTRALINE HCL 50 MG TABLET PO SCH (09:56)
[2019-09-08] MEDS: GLIMEPIRIDE 1 MG TABLET PO SCH (10:00)
--- NOTE | 2019-09-08 13:47 | PDOC DISCHARGE SUMMARY ---
Impression - Admit/DC Date/PCP Admission Date/Primary Care Provider: 09/06/19 16:24 RUPESH BULLOCK Discharge Date: 09/08/19 - Discharge Diagnosis (1) Angioedema Is this a current diagnosis for this admission?: Yes (2) Diabetes mellitus type 2 in obese Is this a current diagnosis for this admission?: Yes (3) HTN (hypertension) Is this a current diagnosis for this admission?: Yes (4) HLD (hyperlipidemia) Is this a current diagnosis for this admission?: Yes (5) Mixed anxiety and depressive disorder Is this a current diagnosis for this admission?: Yes - Assessment Summary: Patient was admitted for progressive angioedema involving right side of her face and lips. she was managed with FFP, IV Solu Medrol, IV Famotidine, and Benadryl with satisfactory resolution of her features. She remain on Amlodipine for blood pressure management. She was listed as having severe reaction to Lisinopril and instructed to avoid medications in the TIM-Inhibitor as well as ARB in view of the severity of her angioedema. Shew will be discharged home today and follow up in the office as instructed upon discharge. - Additional Information Resuscitation Status: Full Code Discharge Diet: Cardiac, Diabetic Discharge Activity: Activity As Tolerated Referrals: RUPESH BULLOCK MD [Primary Care Provider] - 09/17/19 10:00 am Prescriptions: Amlodipine Besylate [Norvasc 10 mg Tablet] 10 mg PO DAILY #30 Home Medications: Aspirin [Adult Low Dose Aspirin EC] 81 mg PO DAILY 07/17/19 Glimepiride [Amaryl] 2 mg PO DAILY 07/17/19 Metformin HCl 500 mg PO BID 07/17/19 Metoprolol Tartrate [Lopressor 25 mg Tablet] 25 mg PO Q12 07/17/19 Omeprazole 20 mg PO DAILY 07/17/19 Rosuvastatin Calcium [Crestor 20 mg Tablet] 20 mg PO QHS 07/17/19 Sertraline HCl [Zoloft] 100 mg PO DAILY 07/17/19 Prednisolone Acetate/Pf [Prednisolone Acet 1% Eye Drop] 1 drop OD Q2HWA 09/06/19 Prednisone 50 mg PO DAILY 09/06/19 Amlodipine Besylate [Norvasc 10 mg Tablet] 10 mg PO DAILY #30 09/08/19 History of Present Illiness History of Present Illness: CHARLOTTE SOMERS is a 69 year old female patient known to my practice who presented to the ED with several hours of right sided facial swelling. Patient reported waking up with facial swelling on the day of her presentation and swelling have been increasing in size and involved area that currently include her lips. She denied any trauma, instrumentation or injury involving right side of her face. She denied any insect bite or dental infection. She recently had tooth extraction in preparation denture or implant. She denied any fever or chills. She denied any chest pain, palpitation, or difficulty with breathing. She denied any coughing or hoarseness. She denied illicit drug usage. She reported similar facial swelling about a year ago and was taking off lisinopril. Patient medication did revealed that patient continue to take lisinopril due to inability to procure prescribed replacement medication. She denied any abdominal pain, nausea, vomiting, diarrhea, or constipation. Her initial evaluation in the ED was remarkable for right sided facial swelling and leukocytosis. She was advised hospitalization for further evaluation and management. Her morbidities are listed below. Hospital Course Hospital Course: Patient was admitted for progressive angioedema involving right side of her face and lips. she was managed with FFP, IV Solu Medrol, IV Famotidine, and Benadryl with satisfactory resolution of her features. She remain on Amlodipine for blood pressure management. She was listed as having severe reaction to Lisinopril and instructed to avoid medications in the TIM-Inhibitor as well as ARB in view of the severity of her angioedema. Shew will be discharged home today and follow up in the office as instructed upon discharge. Physical Exam Vital Signs: Temp Pulse Resp BP Pulse Ox 97.6 F 57 L 17 110/50 L 99 09/08/19 11:39 09/08/19 11:39 09/08/19 11:39 09/08/19 11:39 09/08/19 11:39 Intake & Output 09/07/19 09/08/19 09/09/19 06:59 06:59 06:59 Intake Total 730 Balance 730 Weight 112.9 kg General appearance: PRESENT: no acute distress, obese Head exam: PRESENT: atraumatic, normocephalic Ear exam: PRESENT: normal external ear exam Mouth exam: PRESENT: moist Teeth exam: PRESENT: edentulous Respiratory exam: PRESENT: clear to auscultation nikolas Cardiovascular exam: PRESENT: RRR. ABSENT: diastolic murmur, rubs, systolic murmur Vascular exam: ABSENT: pallor GI/Abdominal exam: PRESENT: normal bowel sounds, soft. ABSENT: distended, guarding, mass, organomegaly, rebound, tenderness Extremities exam: ABSENT: pedal edema Neurological exam: PRESENT: alert, awake, oriented to person, oriented to place, oriented to time, oriented to situation, CN II-XII grossly intact. ABSENT: motor sensory deficit Psychiatric exam: PRESENT: appropriate affect, normal mood. ABSENT: homicidal ideation, suicidal ideation Skin exam: PRESENT: dry, warm Results Laboratory Results: WBC 19.5 10^3/uL (4.0-10.5) H 09/07/19 22:20 RBC 3.04 10^6/uL (3.72-5.28) L 09/07/19 22:20 Hgb 9.7 g/dL (12.0-15.5) L 09/07/19 22:20 Hct 28.6 % (36.0-47.0) L 09/07/19 22:20 MCV 94 fl (80-97) 09/07/19 22:20 MCH 31.9 pg (27.0-33.4) 09/07/19 22:20 MCHC 33.9 g/dL (32.0-36.0) 09/07/19 22:20 RDW 14.5 % (11.5-14.0) H 09/07/19 22:20 Plt Count 528 10^3/uL (150-450) H 09/07/19 22:20 Lymph % (Auto) Not Reportable 09/07/19 22:20 Kleberg % (Auto) Not Reportable 09/07/19 22:20 Eos % (Auto) Not Reportable 09/07/19 22:20 Baso % (Auto) Not Reportable 09/07/19 22:20 Absolute Neuts (auto) Not Reportable 09/07/19 22:20 Absolute Lymphs (auto) Not Reportable 09/07/19 22:20 Absolute Monos (auto) Not Reportable 09/07/19 22:20 Absolute Eos (auto) Not Reportable 09/07/19 22:20 Absolute Basos (auto) Not Reportable 09/07/19 22:20 Total Counted 100 09/07/19 22:20 Seg Neutrophils % Not Reportable 09/07/19 22:20 Seg Neuts % (Manual) 84 % (42-78) H 09/07/19 22:20 Band Neutrophils % 5 % (3-5) 09/07/19 22:20 Lymphocytes % (Manual) 7 % (13-45) L 09/07/19 22:20 Monocytes % (Manual) 4 % (3-13) 09/07/19 22:20 Eosinophils % (Manual) 0 % (0-6) 09/07/19 22:20 Basophils % (Manual) 0 % (0-2) 09/07/19 22:20 Abs Neuts (Manual) 17.4 10^3/uL (1.7-8.2) H 09/07/19 22:20 Abs Lymphs (Manual) 1.4 10^3/uL (0.5-4.7) 09/07/19 22:20 Abs Monocytes (Manual) 0.8 10^3/uL (0.1-1.4) 09/07/19 22:20 Absolute Eos (Manual) 0.0 10^3/uL (0.0-0.6) 09/07/19 22:20 Abs Basophils (Manual) 0.0 10^3/uL (0.0-0.2) 09/07/19 22:20 Platelet Comment INCREASED 09/07/19 22:20 Anisocytosis SLIGHT 09/07/19 22:20 PT 15.2 SEC (11.4-15.4) 09/06/19 21:00 INR 1.19 09/06/19 21:00 APTT 34.8 SEC (23.5-35.8) 09/06/19 21:00 Sodium 143.2 mmol/L (137-145) 09/07/19 22:20 Potassium 4.5 mmol/L (3.6-5.0) 09/07/19 22:20 Chloride 115 mmol/L (98-107) H 09/07/19 22:20 Carbon Dioxide 17 mmol/L (22-30) L 09/07/19 22:20 Anion Gap 11 (5-19) 09/07/19 22:20 BUN 23 mg/dL (7-20) H 09/07/19 22:20 Creatinine 0.75 mg/dL (0.52-1.25) 09/07/19 22:20 Est GFR ( Amer) > 60 (>60) 09/07/19 22:20 Est GFR (MDRD) Non-Af > 60 (>60) 09/07/19 22:20 Glucose 159 mg/dL (75-110) H 09/07/19 22:20 POC Glucose 88 mg/dL (70-110) 09/08/19 11:39 Calcium 8.9 mg/dL (8.4-10.2) 09/07/19 22:20 Total Bilirubin 0.5 mg/dL (0.2-1.3) 09/06/19 15:10 Direct Bilirubin 0.2 mg/dL (0.0-0.4) 09/06/19 15:10 Neonat Total Bilirubin Not Reportable 09/06/19 15:10 Neonat Direct Bilirubin Not Reportable 09/06/19 15:10 Neonat Indirect Bili Not Reportable 09/06/19 15:10 AST 100 U/L (14-36) H 09/06/19 15:10 ALT 140 U/L (<35) 09/06/19 15:10 Alkaline Phosphatase 123 U/L (38-126) 09/06/19 15:10 Total Protein 7.7 g/dL (6.3-8.2) 09/06/19 15:10 Albumin 3.8 g/dL (3.5-5.0) 09/06/19 15:10 Blood Type B POSITIVE 09/06/19 19:50 Plan Health Concerns: avoid TIM-inhibitor and ARB usage to avoid recurrent and possibly more severe angioedema reaction. Plan of Treatment: D/C home on Amlodipine for blood pressure management. Maintain on all other current medication management. Goals: Better diabetes mellitus and blood pressure management. Time Spent: Less than 30 Minutes Stroke Is this a Stroke Patient?: No Acute Heart Failure - Is this a Heart Failure Patient?: No
[2019-09-08 14:31] VITALS: BP 114/56
== END 2019-09-08 16:32 | disposition home or self-care (01) ==
LOC: ER 13:54 → EH 16:24 → 3W 17:33
PROVIDERS: ADMIT Internal Medicine; ATTEND Internal Medicine Geriatric Medicine
DX: T78.3XXA Angioneurotic edema, initial encounter (principal); T44.5X5A Adverse effect of predominantly beta-adrenoreceptor agonists, initial encounter; E11.9 Type 2 diabetes mellitus without complications; I10 Essential (primary) hypertension; E78.5 Hyperlipidemia, unspecified; F41.3 Other mixed anxiety disorders; F32.9 Major depressive disorder, single episode, unspecified; F17.210 Nicotine dependence, cigarettes, uncomplicated; E66.9 Obesity, unspecified; M13.89 Other specified arthritis, multiple sites; Z79.899 Other long term (current) drug therapy; Z79.84 Long term (current) use of oral hypoglycemic drugs; Z79.82 Long term (current) use of aspirin; Z23 Encounter for immunization
CPT/HCPCS: 99284; 96361; 96374; 96375; 86900; 86901; 36415 ×2; 36430; 82962 ×3; 85025 ×2; 85610; 85730; 80048; 80053; 90686; G0378 ×3; P9017 ×2; J1200 ×2; A9270 ×14; J2930 ×2; J7030; J7050; S0028 ×3; J3490

== ENCOUNTER → 2019-11-06 | Outpatient (CLI) | payer MEDICARE, MEDICAID ==
[2019-11-06 11:18] LABS: ABSOLUTE EOSINOPHILS # (AUTO) 0.3 10^3/uL (0.0-0.6); ABSOLUTE LYMPHOCYTES (AUTO) 3.9 10^3/uL (0.5-4.7); ABSOLUTE MONOCYTES (AUTO) 0.5 10^3/uL (0.1-1.4); ABSOLUTE NEUT (AUTO) 3.4 10^3/uL (1.7-8.2); BASOPHILS % (AUTO) 0.4 % (0-2); EOSINOPHILS % (AUTO) 3.2 % (0-6); HEMATOCRIT 36.6 % (36.0-47.0); HEMOGLOBIN 12.7 g/dL (12.0-15.5); LYMPHOCYTES % (AUTO) 47.9 % (13-45); MEAN CORPUSCULAR HEMOGLOBIN 33.4 pg (27.0-33.4); MEAN CORPUSCULAR HGB CONC 34.6 g/dL (32.0-36.0); MEAN CORPUSCULAR VOLUME 96 fl (80-97); MONOCYTES % (AUTO) 6.7 % (3-13); PLATELET COUNT 241 10^3/uL (150-450); RED CELL DISTRIBUTION WIDTH 15.3 % (11.5-14.0); SEGMENTED NEUTROPHILS % (AUTO) 41.8 % (42-78); TOTAL CELLS COUNTED % (AUTO) 100 %; WHITE BLOOD COUNT 8.2 10^3/uL (4.0-10.5)
[2019-11-06 11:37] LABS: ALBUMIN 4.6 g/dL (3.5-5.0); ALKALINE PHOSPHATASE 76 U/L (38-126); ASPARTATE AMINO TRANSFERASE 43 U/L (14-36); BILIRUBIN,TOTAL 0.4 mg/dL (0.2-1.3); TOTAL PROTEIN 7.8 g/dL (6.3-8.2)
== END ==
LOC: LAB 10:39
PROVIDERS: ATTEND Ophthalmology
DX: H30.90 Unspecified chorioretinal inflammation, unspecified eye (principal)
CPT/HCPCS: 36415; 80076; 85025; 86038; 86480; 86592